=== PATIENT | male | born 1950 | race Caucasian/White ===

== ENCOUNTER 2017-10-25 07:37 | Outpatient (CLI) | payer MEDICARE, SELFPAY ==
[2017-10-25 15:11] LABS: Absolute Basophil Count 0.02 k/cumm (0.0-0.2); Absolute Eosinophil Count 0.07 k/cumm (0.0-0.7); Absolute Lymphocyte Count 0.76 k/cumm (1.2-3.4); Absolute Monocyte Count 0.61 k/cumm (0.11-0.7); Absolute Neutrophil Count 2.14 k/cumm (1.2-6.7); Basophils % 0.6; Eosinophils % 1.9; HCT 38.6 % (40.0-50.0); HGB 13.6 g/dL (13.5-17.5); Lymphocytes % 21.1; Mean Corp. HGB Concentration 35.2 g/dL (32.0-36.0); Mean Corpuscular Hemoglobin 32.6 pg (27.0-33.0); Mean Corpuscular Volume 92.6 fL (80-95); Mean Platelet Volume 9.4 fL (8.0-11.0); Monocytes % 16.9; Neutrophils % 59.5; Platelet Count 210 x1000/uL (130-400); RBC 4.17 m/cumm (4.50-6.00); RBC Distribution Width 11.8 % (11.8-14.1)
[2017-10-25 15:38] LABS: ALT 53 U/L (12-78); AST 52 U/L (15-37); Albumin 3.7 g/dL (3.4-5.0); Alkaline Phosphatase 84 U/L (46-116); Anion Gap 5.5 mmol/L (3-11); BUN 9 mg/dL (7-18); Bilirubin, Total 0.5 mg/dL (0.2-1.0); CO2 24.5 mmol/L (21.0-32.0); CREATININE 0.63 mg/dL (0.70-1.30); Chloride 96 mmol/L (98-107); Glucose 93 mg/dL (70-100); Potassium 4.3 mmol/L (3.5-5.1); Sodium 126 mmol/L (136-145); TSH 0.44 uIU/mL (0.358-3.74); Total Protein 7.4 g/dL (6.4-8.2)
== END 2017-10-25 07:57 ==
PROVIDERS: PCP General Practice; Visit Provider Nurse Practitioner Adult Health
DX: C76.0 Malignant neoplasm of head, face and neck (principal)
CPT/HCPCS: 36415; 80053; 84443; 85025

== ENCOUNTER 2018-06-21 08:04 | Outpatient (CLI) | payer BC, MEDICARE, SELFPAY ==
[2018-06-21 12:44] LABS: Abs Immature Grans 0.01 k/cumm (0.0-0.09); Absolute Basophil Count 0.01 k/cumm (0.0-0.2); Absolute Eosinophil Count 0.09 k/cumm (0.0-0.7); Absolute Lymphocyte Count 0.81 k/cumm (1.2-3.4); Absolute Monocyte Count 0.69 k/cumm (0.11-0.7); Absolute Neutrophil Count 3.03 k/cumm (1.2-6.7); Basophils % 0.2; Eosinophils % 1.9; HCT 41.9 % (40.0-50.0); HGB 14.8 g/dL (13.5-17.5); Immature Grans % 0.2; Lymphocytes % 17.5; Mean Corp. HGB Concentration 35.3 g/dL (32.0-36.0); Mean Corpuscular Hemoglobin 32.7 pg (27.0-33.0); Mean Corpuscular Volume 92.7 fL (80-95); Mean Platelet Volume 9.6 fL (8.0-11.0); Monocytes % 14.9; Neutrophils % 65.3; Platelet Count 213 x1000/uL (130-400); RBC 4.52 m/cumm (4.50-6.00); RBC Distribution Width 11.4 % (11.8-14.1); White Blood Cell Count 4.64 k/cumm (4.4-10.8)
[2018-06-21 13:23] LABS: ALT 75 U/L (12-78); AST 61 U/L (15-37); Albumin 3.7 g/dL (3.4-5.0); Alkaline Phosphatase 77 U/L (46-116); Anion Gap 8.4 mmol/L (3-11); BUN 8 mg/dL (7-18); Bilirubin, Total 0.4 mg/dL (0.2-1.0); CO2 26.6 mmol/L (21.0-32.0); CREATININE 0.73 mg/dL (0.70-1.30); Calcium 8.9 mg/dL (8.5-10.1); Chloride 95 mmol/L (98-107); Glucose 89 mg/dL (70-100); Potassium 3.9 mmol/L (3.5-5.1); Sodium 130 mmol/L (136-145); TSH 1.36 uIU/mL (0.358-3.74); Total Protein 7.6 g/dL (6.4-8.2)
== END 2018-06-21 08:24 ==
PROVIDERS: PCP General Practice; Visit Provider Nurse Practitioner Adult Health
DX: C76.0 Malignant neoplasm of head, face and neck (principal); E03.8 Other specified hypothyroidism
CPT/HCPCS: 36415; 80053; 84443; 85025

== ENCOUNTER 2018-06-26 12:20 | Outpatient (REF) | payer BC, MEDICARE, SELFPAY | END 2018-06-26 12:40 | LOC: LBN 12:20 | PROVIDERS: PCP General Practice; Visit Provider General Practice | DX: L02.91 Cutaneous abscess, unspecified (principal) | CPT/HCPCS: 87070; 87205 ==

== ENCOUNTER 2018-06-30 08:14 | Outpatient (CLI) | payer BC, MEDICARE, SELFPAY ==
--- NOTE | 2018-06-30 08:00 | DI.RAD_ITS ---
SYMPTOM/DIAGNOSIS: EVAL RECURRENCE OR MET C76.0 PA AND LATERAL CHEST: 06/30 The heart is not enlarged. The lungs are grossly clear with minimal change to scarring. No pleural effusion seen. CONCLUSION: No evidence of acute disease. A mid-thoracic compression fracture is unchanged from previous chest CT of 06/21/2017 There is a questionable finding of increased radiodensity overlying the lateral aspect of the right 5th rib. This appears to correspond to a bone island which is also present on chest CT of 06/21/17
== END 2018-06-30 08:34 ==
PROVIDERS: PCP General Practice; Visit Provider Nurse Practitioner Adult Health
DX: C76.0 Malignant neoplasm of head, face and neck (principal); Z12.89 Encounter for screening for malignant neoplasm of other sites; M89.8X8 Other specified disorders of bone, other site
CPT/HCPCS: 71046

== ENCOUNTER 2018-09-08 07:59 | Outpatient (CLI) | payer BC, MEDICARE, SELFPAY ==
--- NOTE | 2018-09-08 09:02 | DI.RAD_ITS ---
SYMPTOM/DIAGNOSIS: CHRONIC PAIN LEFT THUMB: Three views. No priors. At the first carpal/metacarpal joint there is marked joint space narrowing, sclerosis and osteophytosis. There is loss of volume of the trapezium bone. There is also joint space narrowing and sclerosis seen at the articulation of the scaphoid with both the trapezium and trapezoid. At the first metacarpal phalangeal joint there is mild spurring at the head of the metacarpal bone. There is mild spurring at the interphalangeal joint of the left thumb. Note is also made of joint space narrowing and spurring at the distal radial ulnar joint. Mild degenerative changes are seen at the interphalangeal joints of the index and middle fingers. IMPRESSION: Severe osteoarthritis of the left thumb particularly the first carpal/metacarpal joint.
--- NOTE | 2018-09-08 09:02 | DI.RAD_ITS ---
SYMPTOM/DIAGNOSIS: CHRONIC PAIN RIGHT THUMB: Three views. No priors. There is marked joint space narrowing and marked periarticular osteophytosis at the first carpal/metacarpal joint. At the first metacarpal phalangeal joint there is mild periarticular spurring and joint space narrowing. The interphalangeal joint of the thumb appears intact. No acute fracture, dislocation, lytic or sclerotic lesion is seen. IMPRESSION: Severe arthritis of the right thumb.
[2018-09-08 09:38] LABS: INR 1.1 (0.9-1.1); Prothrombin Time 10.5 sec (9.3-11.0)
[2018-09-08 10:09] LABS: ALT 76 U/L (12-78); AST 51 U/L (15-37); Bilirubin, Total 0.6 mg/dL (0.2-1.0); CREATININE 0.62 mg/dL (0.70-1.30); Calculated LDL 60 mg/dL; Cholesterol 129 mg/dL (50-200); Glucose 95 mg/dL (70-100); HDL Cholesterol 57 mg/dL (40-60); Potassium 4.4 mmol/L (3.5-5.1); Triglyceride 61 mg/dL (30-150)
== END 2018-09-08 08:19 ==
PROVIDERS: PCP General Practice; Visit Provider General Practice
DX: I10 Essential (primary) hypertension (principal); B18.2 Chronic viral hepatitis C; M79.645 Pain in left finger(s); M18.12 Unilateral primary osteoarthritis of first carpometacarpal joint, left hand
CPT/HCPCS: 36415; 80061; 82947; 83721; 73140; 82247; 82565; 84132; 84450; 84460; 85610

== ENCOUNTER 2018-12-28 03:03 | Outpatient (CLI) | payer BC, MEDICARE, SELFPAY ==
--- NOTE | 2018-12-28 08:35 | DI.MRI_ITS ---
EXAM: MR LUMBAR SPINE WO CLINICAL HISTORY: M54.9,DORSALGIA., H/O SURGERY, LOW BACK PAIN, LEG SYMPTOMS TECHNIQUE: Multiplanar multisequence MRI was performed. COMPARISON: MRI - LUMBAR SPINE WO CONTRAST from 10/30/2013 NECK AND CHEST WITH CONTRAST from 01/30/2016 NECK AND CHEST WITH CONTRAST from 06/21/2017 FINDINGS: MR examination of the lumbosacral spine was performed according to the usual protocol. Patient has h ad a prior surgical procedure with apparent Ventura rods in place at L4 and L5. Metallic artifact somewhat obscures the spine at these levels. Old compression deformity of T10 again noted. No change from 10/30/2013. The conus medullaris appea rs intact. Mild disc bulge at T12-L1. No other significant findings at T12-L1, L1-2 or L2-3. At L3-4, there is a moderate central canal spinal stenosis and bilateral neural foraminal stenosis. Comparison with prior study shows slight increase in severity of central canal spinal stenosis at thi s level. At L4-5, there is suboptimal visualization of the spinal canal but no gross central canal spinal sten osis is seen. Bilateral neural foraminal narrowing noted at this level. At L5-S1, there is a disc bulge without disc herniation. Little interval change [facility] the previous examination. Borderline neural foraminal stenosis seen. IMPRESSION: Interval decrease in severity of central canal spinal stenosis at L4-5 in comparison with prior pre-s urgical study of 10/30/2013. Mild interval increase in severity of central canal spinal stenosis at L3-4 since the prior examinati on. Bilateral neural foraminal narrowing noted at L3-4 and L4-5.
== END 2018-12-28 03:23 ==
PROVIDERS: PCP General Practice; Visit Provider General Practice
DX: M54.5 Low back pain (principal); M48.061 Spinal stenosis, lumbar region without neurogenic claudication; M51.27 Other intervertebral disc displacement, lumbosacral region
CPT/HCPCS: 72148

== ENCOUNTER 2019-01-29 10:47 | Outpatient (REF) | payer BC, MEDICARE, SELFPAY ==
[2019-01-29 14:49] LABS: Anion Gap 11.1 mmol/L (3-11); BUN 10 mg/dL (7-18); CO2 23.9 mmol/L (21.0-32.0); CREATININE 0.66 mg/dL (0.70-1.30); Calcium 9.7 mg/dL (8.5-10.1); Chloride 97 mmol/L (98-107); Glucose 109 mg/dL (74-106); Potassium 4.4 mmol/L (3.5-5.1); Sodium 132 mmol/L (136-145); TSH (W/Ref FT4) 0.76 uIU/mL (0.36-3.74)
[2019-01-30 10:55] LABS: Hepatitis C Ab w Rflx HCV PCR Reactive (Negative)
== END 2019-01-29 11:07 ==
LOC: NCHCN 10:47
PROVIDERS: PCP General Practice; Visit Provider Specialist/Technologist Athletic Trainer
DX: E03.9 Hypothyroidism, unspecified (principal); I10 Essential (primary) hypertension; Z86.59 Personal history of other mental and behavioral disorders; Z11.59 Encounter for screening for other viral diseases
CPT/HCPCS: 80048; 86803; 84443; 87522

== ENCOUNTER 2019-02-27 14:20 | Outpatient (REF) | payer MEDICARE, SELFPAY ==
[2019-02-27 22:06] LABS: HCT 40.5 % (40.0-50.0); HGB 14.4 g/dL (13.5-17.5); Mean Corp. HGB Concentration 35.6 g/dL (32.0-36.0); Mean Corpuscular Hemoglobin 32.7 pg (27.0-33.0); Mean Platelet Volume 9.9 fL (8.0-11.0); Platelet Count 271 x1000/uL (130-400); RBC Distribution Width 11.4 % (11.8-14.1); White Blood Cell Count 4.04 k/cumm (4.4-10.8)
[2019-02-27 22:16] LABS: ALT 83 U/L (16-63); AST 74 U/L (15-37); Alkaline Phosphatase 93 U/L (46-116); Anion Gap 11.8 mmol/L (3-11); BUN 9 mg/dL (7-18); Bilirubin, Total 0.6 mg/dL (0.2-1.0); CO2 25.2 mmol/L (21.0-32.0); CREATININE 0.62 mg/dL (0.70-1.30); Calcium 9.5 mg/dL (8.5-10.1); Chloride 94 mmol/L (98-107); Glucose 88 mg/dL (74-106); Potassium 4.6 mmol/L (3.5-5.1); Sodium 131 mmol/L (136-145); Total Protein 7.5 g/dL (6.4-8.2)
== END 2019-02-27 14:40 ==
LOC: NCHCN 14:20
PROVIDERS: PCP General Practice; Visit Provider Specialist/Technologist Athletic Trainer
DX: I10 Essential (primary) hypertension (principal); F10.99 Alcohol use, unspecified with unspecified alcohol-induced disorder; R68.89 Other general symptoms and signs
CPT/HCPCS: 80053; 85027

== ENCOUNTER 2019-05-21 10:55 | Outpatient (CLI) | payer OTHER, MEDICARE, SELFPAY ==
--- NOTE | 2019-05-21 | DI.RAD_ITS ---
EXAM: XR LUMBAR SPINE COMPLETE CLINICAL HISTORY: S/P LUMBAR FUSION, Z98.1 COMPARISON: LUMBAR SPINE COMPLETE from 11/27/2013 FINDINGS: Seven views were obtained. There is a left hip prosthesis in position. There are Ventura rods in place at L3-4 and there are fixation screws in the pedicles and posterior elements at L5. There is an L3-4 prosthetic disc. Vascular clips are present at the L4-5 disc level. There is marked loss of t he intervertebral disc space at L4-5 and L5-S1. There are prominent hypertrophic facet changes and endplate changes throughout the lumbar region. The re is no acute fracture. There is a slight left convex lumbar scoliosis. There is minimal anterior pseudospondylolisthesis of L4 on L5 and also of L3 on L4. IMPRESSION: Post surgical and degenerative changes as described above. No acute findings.
== END 2019-05-21 11:15 ==
PROVIDERS: PCP General Practice; Visit Provider Neurological Surgery
DX: M51.37 Other intervertebral disc degeneration, lumbosacral region (principal); M43.16 Spondylolisthesis, lumbar region; Z98.1 Arthrodesis status; Z96.642 Presence of left artificial hip joint
CPT/HCPCS: 72110

== ENCOUNTER 2019-07-24 12:29 | Outpatient (CLI) | payer MEDICARE, OTHER, SELFPAY ==
[2019-07-24 13:29] LABS: Abs Immature Grans 0.01 k/cumm (0.0-0.09); Absolute Basophil Count 0.01 k/cumm (0.0-0.2); Absolute Lymphocyte Count 0.79 k/cumm (1.2-3.4); Absolute Monocyte Count 0.66 k/cumm (0.11-0.7); Absolute Neutrophil Count 3.02 k/cumm (1.2-6.7); Basophils % 0.2; Eosinophils % 2.2; Immature Grans % 0.2 %; Lymphocytes % 17.2; Mean Corp. HGB Concentration 35.9 g/dL (32.0-36.0); Mean Corpuscular Hemoglobin 32.1 pg (27.0-33.0); Mean Corpuscular Volume 89.4 fL (80-95); Monocytes % 14.4; Neutrophils % 65.8; Platelet Count 291 x1000/uL (130-400); RBC 4.36 m/cumm (4.50-6.00); RBC Distribution Width 11.1 % (11.8-14.1); White Blood Cell Count 4.59 k/cumm (4.4-10.8)
[2019-07-24 13:43] LABS: ALT 60 U/L (16-63); AST 49 U/L (15-37); Albumin 3.7 g/dL (3.4-5.0); Alkaline Phosphatase 81 U/L (46-116); Anion Gap 9.4 mmol/L (3-11); BUN 7 mg/dL (7-18); Bilirubin, Total 0.5 mg/dL (0.2-1.0); CO2 24.6 mmol/L (21.0-32.0); CREATININE 0.78 mg/dL (0.70-1.30); Calcium 8.9 mg/dL (8.5-10.1); Chloride 93 mmol/L (98-107); Glucose 91 mg/dL (74-106); Potassium 3.9 mmol/L (3.5-5.1); Sodium 127 mmol/L (136-145); TSH 0.99 uIU/mL (0.36-3.74); Total Protein 7.1 g/dL (6.4-8.2)
== END 2019-07-24 12:49 ==
PROVIDERS: PCP Internal Medicine; Visit Provider Internal Medicine Hematology & Oncology
DX: C76.0 Malignant neoplasm of head, face and neck (principal); E03.9 Hypothyroidism, unspecified
CPT/HCPCS: 36415; 80053; 84443; 85025

== ENCOUNTER 2019-08-28 01:07 | Outpatient (CLI) | payer OTHER, MEDICARE, SELFPAY ==
--- NOTE | 2019-08-28 13:30 | DI.CTLCSR_ITS ---
EXAM: CT CHEST LUNG CANCER SCREEN CLINICAL HISTORY: The patient reportedly has a History of Smoking 30 pack years and presently smokes or has quit the past 15 years. TECHNIQUE: Imaging Protocol: Axial computed tomography images with coronal and sagittal reformatted images were created and reviewed COMPARISON: CT NECK AND CHEST WITH CONTRAST from 06/21/2017 FINDINGS: Tracheobronchial tree: Patent where visualized. Mediastinum and Jen: No dominant adenopathy or fluid collection. Pulmonary parenchyma: No consolidation or dominant measurable mass. No significant emphysematous or f ibrotic changes. Lung Nodules: None. Pleura: No effusion or pneumothorax. Heart: The heart is not dilated. No coronary artery calcifications are seen. Antral valve calcificati ons are present. Aorta: Thoracic aorta non-dilated.Mild calcification. Marked tortuosity. Upper abdomen: Unremarkable. Bones: Stable severe wedging deformity of the T10 vertebral body. Degenerative disc changes. No lyt ic or blastic lesions. Soft Tissues: Unremarkable. IMPRESSION: No pulmonary nodules or other acute abnormality are identified. Lung RADS Cat 1 - Negative: No nodules and definitely benign nodules Lung-RADS 1.0 CATEGORIES: Category 0 - Prior chest CT exam(s) being located for comparison. Category 1 - Annual screening in 12 months. No nodules or definitely benign nodules. Category 2 - Annual screening in 12 months. Benign appearance. Nodules with low likelihood of becomin g active cancer. Category 3 - 6-month follow-up. Probably benign. Short-term follow-up suggested. Nodules with low lik elihood of becoming active cancer. Category 4A - 3-month follow-up and CT/PET if >8 mm in size. Suspicious finding. Findings which requi re additional testing. Category 4B - Findings which require additional testing and tissue sampling. Suspicious finding. C Added to Any of the Above - History of prior lung cancer screening. S Added to Any of the Above - Significant unexpected other finding. RADIATION DOSE DELIVERED: Total DLP DATA REPOSITORY: All CT scans at this facility are submitted to the National Radiology Data Registry (NRDR) Dose Index Registry (DIR) with the [employer] ([employer]). RADIATION OPTIMIZATION: All CT scans at this facility use at least one of these dose optimization te chniques: automated exposure control; mA and/or kV adjustment per patient size (includes targeted exa ms where dose is matched to clinical indication); or iterative reconstruction.
== END 2019-08-28 01:27 ==
PROVIDERS: PCP Internal Medicine; Visit Provider Internal Medicine Hematology & Oncology
DX: Z12.2 Encounter for screening for malignant neoplasm of respiratory organs (principal); Z87.891 Personal history of nicotine dependence
CPT/HCPCS: G0297

== ENCOUNTER 2020-02-20 01:39 | Outpatient (CLI) | payer OTHER, MEDICARE, SELFPAY ==
--- NOTE | 2020-02-20 | DI.RAD_ITS ---
EXAM: XR LUMBAR SPINE COMPLETE CLINICAL HISTORY: 1 YR S/P L3-4 LUMBAR FUSION,Z98.1 TECHNIQUE: COMPARISON: CR XR LUMBAR SPINE COMPLETE from 05/21/2019 FINDINGS: Eight views were obtained. Note is again made of posterior fixation hardware in place from L3 throug h L5 as well as a vertebral disc prosthesis at L3-4. Alignment appears unchanged comparison with david or radiographs of May 20. No new fracture seen. Flexion extension views grossly unremarkable. IMPRESSION: RADIATION DOSE DELIVERED: Total DLP
== END 2020-02-20 01:59 ==
PROVIDERS: PCP Internal Medicine; Visit Provider Neurological Surgery
DX: Z98.1 Arthrodesis status (principal)
CPT/HCPCS: 72110

== ENCOUNTER 2020-04-25 19:35 | Outpatient (REF) | payer MEDICARE, OTHER, SELFPAY ==
[2020-04-25 13:40] LABS: HCT 44.7 % (40.0-50.0); HGB 15.6 g/dL (13.5-17.5); MCH 31.3 pg (27.0-33.0); MCHC 34.9 % (32.0-36.0); MCV 89.8 fL (80-95); MPV 10.2 fL (8.0-11.0); Platelet Count 259 10^3/uL (130-400); RBC 4.98 10^6/uL (4.36-5.78); RDW 12.4 % (11.8-14.1); WBC 6.83 10^3/uL (4.4-10.8)
[2020-04-25 13:49] LABS: ALT 63 U/L (16-63); AST 49 U/L (15-37); Albumin 4.2 g/dL (3.4-5.0); Alkaline Phosphatase 91 U/L (46-116); Anion Gap 11.8 mmol/L (3-11); BUN 13 mg/dL (7-18); Bilirubin, Total 0.7 mg/dL (0.2-1.0); CO2 25.2 mmol/L (21.0-32.0); CREATININE 0.8 mg/dL (0.70-1.30); Calcium 9.8 mg/dL (8.5-10.1); Calculated LDL 87 mg/dL (<100); Chloride 96 mmol/L (98-107); Cholesterol 155 mg/dL (<200); Glucose 96 mg/dL (74-106); HDL Cholesterol 63 mg/dL (40-60); Potassium 4.9 mmol/L (3.5-5.1); Sodium 133 mmol/L (136-145); TSH (W/Ref FT4) 1.21 uIU/mL (0.36-3.74); Total Protein 7.8 g/dL (6.4-8.2); Triglyceride 27 mg/dL (<150)
[2020-04-25 22:34] LABS: PSA, Screening 2.5 ng/mL (0.0-4.5)
== END 2020-04-25 19:36 | disposition home or self-care (01) ==
LOC: NCHCN 19:35
PROVIDERS: PCP Internal Medicine; Visit Provider Family Medicine
DX: Z00.00 Encounter for general adult medical examination without abnormal findings (principal); E89.0 Postprocedural hypothyroidism; I10 Essential (primary) hypertension; B19.20 Unspecified viral hepatitis C without hepatic coma; Z12.5 Encounter for screening for malignant neoplasm of prostate
CPT/HCPCS: 80053; 80061; 84153; 85027; 84443

== ENCOUNTER 2020-06-30 03:17 | Outpatient (CLI) | payer MEDICARE, OTHER, SELFPAY ==
[2020-06-30 09:43] LABS: ALT 59 U/L (16-63); AST 50 U/L (15-37); Albumin 3.9 g/dL (3.4-5.0); Alkaline Phosphatase 89 U/L (46-116); BUN 9 mg/dL (7-18); Bilirubin, Total 0.7 mg/dL (0.2-1.0); CREATININE 0.7 mg/dL (0.70-1.30); Chloride 96 mmol/L (98-107); Glucose 99 mg/dL (74-106); Potassium 4.1 mmol/L (3.5-5.1); Sodium 130 mmol/L (136-145); TSH 0.74 uIU/mL (0.36-3.74); Total Protein 7.5 g/dL (6.4-8.2)
== END 2020-06-30 03:18 | disposition home or self-care (01) ==
LOC: LBO 03:17
PROVIDERS: PCP Internal Medicine; Visit Provider Internal Medicine Hematology & Oncology
DX: C76.0 Malignant neoplasm of head, face and neck (principal); E03.9 Hypothyroidism, unspecified
CPT/HCPCS: 36415; 80053; 84443

== ENCOUNTER 2020-12-10 00:50 | Outpatient (CLI) | payer MEDICARE, OTHER, SELFPAY ==
--- NOTE | 2020-12-10 08:32 | DI.CTLCSR_ITS ---
Exam(s) CT CHEST LUNG CANCER SCREEN EXAM: CT CHEST LUNG CANCER SCREEN CLINICAL HISTORY: SCREENING FOR LUNG CA, FORMER SMOKER,Z87.891,H/O HEAD AND NECK CA,HIGH RISK TECHNIQUE: Imaging Protocol: Axial computed tomography images with coronal and sagittal reformatted images were created and reviewed COMPARISON: CT CT CHEST LUNG CANCER SCREEN from 08/28/2019 FINDINGS: Tracheobronchial tree: Patent where visualized. Pulmonary parenchyma: No consolidation or dominant measurable mass. No architectural distortion. Mild atelectasis or scarring in the lung bases. Lung Nodules: None. Mediastinum and Jen: No dominant adenopathy or fluid collection. Thyroid gland: Unremarkable. Pleura: No effusion or pneumothorax. Heart: The heart is not dilated. No coronary artery calcifications are seen. No pericardial effusion .Mitral valve calcification. Aorta: Thoracic aorta non-dilated.Atherosclerosis. Upper abdomen: Unremarkable. Soft Tissues: Unremarkable. Bones: Within normal limits. Lumbar spinal fusion surgery is noted. There is an old T10 wedge deform ity of the vertebral body. IMPRESSION: No pulmonary nodules. Lung RADS Cat 1 - Negative: No nodules and definitely benign nodules Lung-RADS 1.0 CATEGORIES: Category 0 - Prior chest CT exam(s) being located for comparison. Category 1 - Annual screening in 12 months. No nodules or definitely benign nodules. Category 2 - Annual screening in 12 months. Benign appearance. Nodules with low likelihood of becomin g active cancer. Category 3 - 6-month follow-up. Probably benign. Short-term follow-up suggested. Nodules with low lik elihood of becoming active cancer. Category 4A - 3-month follow-up and CT/PET if >8 mm in size. Suspicious finding. Findings which requi re additional testing. Category 4B - Findings which require additional testing and tissue sampling. Suspicious finding. Modifier S- Potentially clinically significant finding. (Non lung cancer) RADIATION DOSE DELIVERED: 88.26mGy.cm Total DLP 1.84mGy CTDIvol 88.26mGy.cm Total DLP 1.84mGy CTDIvol DATA REPOSITORY: All CT scans at this facility are submitted to the National Radiology Data Registry (NRDR) Dose Index Registry (DIR) with the [employer] (ACR). RADIATION OPTIMIZATION: All CT scans at this facility use at least one of these dose optimization te chniques: automated exposure control; mA and/or kV adjustment per patient size (includes targeted exa ms where dose is matched to clinical indication); or iterative reconstruction.
== END 2020-12-10 01:10 ==
PROVIDERS: PCP Internal Medicine; Visit Provider Internal Medicine Hematology & Oncology
DX: Z87.891 Personal history of nicotine dependence (principal); C76.0 Malignant neoplasm of head, face and neck; Z12.2 Encounter for screening for malignant neoplasm of respiratory organs
CPT/HCPCS: 71271

== ENCOUNTER → 2021-03-31 08:05 | Outpatient (BNVA) | payer BC, MEDICARE, SELFPAY | PROVIDERS: PCP Internal Medicine; Referring Provider Family Medicine; Visit Provider Psychiatry & Neurology Neurology | DX: G56.03 Carpal tunnel syndrome, bilateral upper limbs (principal); G56.23 Lesion of ulnar nerve, bilateral upper limbs; M48.061 Spinal stenosis, lumbar region without neurogenic claudication; G62.9 Polyneuropathy, unspecified; I10 Essential (primary) hypertension; F10.10 Alcohol abuse, uncomplicated | CPT/HCPCS: 95886; 95911; 99204 ==

== ENCOUNTER 2021-04-27 12:51 | Outpatient (REF) | payer BC, MEDICARE, SELFPAY ==
[2021-04-27 16:07] LABS: ALT 80 U/L (16-63); AST 70 U/L (15-37); Albumin 4.1 g/dL (3.4-5.0); Alkaline Phosphatase 90 U/L (46-116); BUN 12 mg/dL (7-18); Bilirubin, Total 0.9 mg/dL (0.2-1.0); CREATININE 0.7 mg/dL (0.70-1.30); Calcium 9.4 mg/dL (8.5-10.1); Calculated LDL 77 mg/dL (<100); Chloride 97 mmol/L (98-107); Cholesterol 143 mg/dL (<200); Glucose 94 mg/dL (74-106); HDL Cholesterol 61 mg/dL (40-60); Potassium 4.4 mmol/L (3.5-5.1); Sodium 132 mmol/L (136-145); TSH (W/Ref FT4) 1.79 uIU/mL (0.36-3.74); Total Protein 7.7 g/dL (6.4-8.2); Triglyceride 29 mg/dL (<150)
== END 2021-04-27 12:52 | disposition home or self-care (01) ==
LOC: NCHCN 12:51
PROVIDERS: PCP Internal Medicine; Visit Provider Family Medicine
DX: E89.0 Postprocedural hypothyroidism (principal); I10 Essential (primary) hypertension; C76.0 Malignant neoplasm of head, face and neck; B19.20 Unspecified viral hepatitis C without hepatic coma
CPT/HCPCS: 80053; 80061; 84443

== ENCOUNTER → 2021-05-08 10:40 | Outpatient (BNVA) | payer BC, MEDICARE, SELFPAY | PROVIDERS: PCP Internal Medicine; Referring Provider Internal Medicine; Visit Provider Student in an Organized Health Care Education/Training Program | DX: R69 Illness, unspecified (principal) | CPT/HCPCS: 99213 ==

== ENCOUNTER 2021-05-19 15:26 | Outpatient (REF) | payer BC, MEDICARE, SELFPAY ==
[2021-05-19 17:13] LABS: D-Dimer 1314 ng/mlFEU (<500)
== END 2021-05-19 15:27 | disposition home or self-care (01) ==
LOC: NCHCN 15:26
PROVIDERS: PCP Family Medicine; Visit Provider Internal Medicine
DX: R22.42 Localized swelling, mass and lump, left lower limb (principal)
CPT/HCPCS: 85379

== ENCOUNTER → 2021-05-21 02:44 | Outpatient (CLI) | payer BC, MEDICARE, SELFPAY ==
--- NOTE | 2021-05-21 | DI.US_ITS ---
Exam(s) US LOWER EXTREMITY VENOUS LT EXAM: US LOWER EXTREMITY VENOUS LT CLINICAL HISTORY: + D DIMER,? DVT,H/O EDEMA ANKLE AND LEG,R22.42. TECHNIQUE: Lower extremity venous ultrasound performed using grayscale, color-flow, and spectral Do ppler analysis. COMPARISON: No exams were available for comparison FINDINGS: The common femoral, femoral and popliteal veins demonstrate normal compressibility, augmentation, and color Doppler. The posterior tibial veins are patent. No saphenous vein thrombosis or other superfi cial venous thrombosis is seen. No hematoma or Louie's cyst is seen. Mild ankle edema. IMPRESSION: Negative lower extremity ultrasound. No evidence of DVT. DATA REPOSITORY:
== END ==
PROVIDERS: PCP Family Medicine; Visit Provider Internal Medicine
DX: R22.42 Localized swelling, mass and lump, left lower limb (principal)
CPT/HCPCS: 93971

== ENCOUNTER → 2021-06-02 09:54 | Outpatient (BNVA) | payer BC, MEDICARE, SELFPAY | PROVIDERS: PCP Family Medicine; Referring Provider Family Medicine | DX: Z01.818 Encounter for other preprocedural examination (principal); G56.23 Lesion of ulnar nerve, bilateral upper limbs; G56.03 Carpal tunnel syndrome, bilateral upper limbs ==

== ENCOUNTER 2021-06-08 02:31 | Outpatient (CLI) | payer BC, MEDICARE, SELFPAY ==
[2021-06-08 12:10] LABS: Source Nasal/Nares
[2021-06-08 15:36] LABS: COVID-19 PCR Negative (Negative)
== END 2021-06-08 02:32 | disposition home or self-care (01) ==
LOC: LBO 02:32
PROVIDERS: PCP Family Medicine; Visit Provider Student in an Organized Health Care Education/Training Program
DX: Z20.822 Contact with and (suspected) exposure to COVID-19 (principal); Z01.818 Encounter for other preprocedural examination
CPT/HCPCS: 87635

== ENCOUNTER 2021-06-09 10:16 | Day surgery (SDC) | payer BC, MEDICARE, SELFPAY ==
--- NOTE | 2021-06-09 09:23 | W.PM.DSUDISC ---
Discharge Plan Disposition Patient Disposition: HOME Condition: Good Discharge Details Reason For Visit: Right carpal and cubital tunnel syndromes Attending Provider: Reynaldo Calix Primary Care Provider: Marybel Eldridge Home Meds and New Rx's Prescriptions: New acetaminophen 500 mg tablet 500 mg PO Q6H PRN (Reason: pain) Qty: 60 2RF hydrocodone-acetaminophen 5-325 mg tablet 1 tab PO Q6H PRN (Reason: severe pain) Qty: 4 0RF Rx Instructions: Take one tablet up to every 6 hours as needed for severe postoperative pain ibuprofen 600 mg tablet 600 mg PO TID PRN (Reason: pain) Qty: 60 0RF Continued doxazosin [Cardura] 2 MG tablet 2 mg PO DAILY 0RF Label Comments: pt reports he doesnt take this med, stopped taking @ 3 weeks ago levothyroxine [Synthroid] 125 mcg tablet 125 mcg PO DAILY 0RF gabapentin 100 mg capsule 100 mg PO DAILY 0RF amlodipine 10 mg tablet 10 mg PO DAILY 0RF Label Comments: TAKE ONE TABLET BY MOUTH EVERY DAY Discontinued ibuprofen 800 mg tablet 800 mg PO HS PRN0RF Discharge Instructions Additional Instructions: Carpal Tunnel and Cubital Tunnel Decompression Discharge Instructions Activity: You should stay in the sling for the first 2 weeks. You may come out of the sling for gentle motion and hygiene but should largely remain in the sling to allow the incision site to heal. Gentle motion of the elbow, hand, wrist, and fingers is okay and encouraged after the first few days, but no repetitive activites nor heavy lifting. You may apply ice. Medications: - You should take Tylenol and Ibuprofen around the clock. - You have been prescribed Hydrocodone for breakthrough pain. Dressings: - The initial surgical dressing should stay in place for 3 days. It may then be removed and kept clean and dry. The wrist wound may be covered with a bandaid. The elbow should be covered with a light gauze dressing or large bandaids. - You may shower after 3 days and get the wound wet. Follow-up: 10 days Stand Alone Forms: Anesthesia Discharge , Yogi Juares Tunnel ReleaseDiane (DIEGO) Equipment/Supplies: Sling Activity:: Elevate Remove Dressings/Wound Care:: 72 hours Shower/Bathe:: 72 hours Diet:: As Tolerated Discharge Orders Discharge Orders: Discharge Order (Routine); Ordered 04/19/22 Ordered By: Mone Celis
[2021-06-09 10:47] VITALS: BP 148/90; PULSE 85; RESP 18; TEMP 36.7; O2SAT 96
--- NOTE | 2021-06-09 11:06 | ANES.PREOP_ITS ---
General Info Date of Service Date Performed: 06/09/21 Height: 5 ft 10 in Weight: 85.8 kg Body Mass Index (BMI): 27.1 Surgical Procedure: Operation Date: 06/09/21 14:10 Proposed Procedure Side Surgeon p Wrist ECTR Right Reynaldo Calix MD s Cubital Tunnel Release Right Reynaldo Calix MD Meds Allergies and Home Medications Allergies Allergy/AdvReac Type Severity Reaction Status Date / Time Sulfa (Sulfonamide Allergy Intermediate Verified 06/09/21 10:42 Antibiotics) codeine AdvReac Verified 06/09/21 10:43 Home Medication Medication Instructions Recorded doxazosin 2 mg tablet (Cardura) 2 mg PO DAILY tab-cap 01/19/16 levothyroxine 125 mcg tablet 125 mcg PO DAILY 12/18/19 (Synthroid) gabapentin 100 mg capsule 100 mg PO DAILY 12/17/20 amlodipine 10 mg tablet 10 mg PO DAILY 06/05/21 acetaminophen 500 mg tablet 500 mg PO Q6H PRN #60 tab 06/09/21 hydrocodone 5 mg-acetaminophen 325 1 tab PO Q6H PRN #4 tab 06/09/21 mg tablet ibuprofen 600 mg tablet 600 mg PO TID PRN #60 tab 06/09/21 Current Visit Medications: Current Medications Generic Name Dose Route Start Last Admin Trade Name Freq PRN Reason Stop Dose Admin Acetaminophen 650 mg 06/09/21 09:21 Acetaminophen 325 Mg Tab PO Q4H PRN PRN Hydrocodone Bitart/Acetaminophen 0 tab 06/09/21 09:21 Hydrocodone 5/Acetaminophen 325 Tab PO Q3H PRN PRN Pain Ringer's Solution 1,000 mls @ 80 mls/hr 06/09/21 06:00 IV 06/20/21 23:59 INFUSION KWAME Cefazolin Sodium/Dextrose 2 gm in 50 mls @ 100 mls/hr 06/09/21 06:00 Ancef Duplex IVPB 06/09/21 23:59 PREOP KWAME IV Miscellaneous Supplies 1 each 06/09/21 06:00 Iv Access IV 06/20/21 23:59 DIRECTED KWAME Sodium Chloride 0 ml 06/09/21 06:00 Normal Saline Flush 10 Ml Syr IV 06/20/21 23:59 PRN PRN Sodium Chloride 0 ml 06/09/21 06:00 Normal Saline 10 Ml Vial IJ 06/20/21 23:59 DIRECTED PRN Sterile Water 0 ml 06/09/21 06:00 Water,Injection,Sterile 10 Ml Vial IJ 06/20/21 23:59 DIRECTED PRN PFSH Active Problems Active Problems: Problem Status Onset Code Carpal tunnel syndrome on both sides G56.03 Cubital tunnel syndrome, bilateral G56.23 Lumbar stenosis M48.061 Peripheral neuropathy G62.9 Medical History Medical History Alcohol abuse BPH (benign prostatic hyperplasia) Bundle branch block Bifascicular block per [facility] rec. Colon adenoma ED (erectile dysfunction) Hepatitis C History of head and neck cancer History of radiation therapy History of substance abuse HTN (hypertension) Hypothyroidism Lumbar IVD with compression radiculopathy Osteoarthritis Medical History Comments:: Dentures removed and left at home Surgical History Surgical History back surgery Colonoscopy - IV Sedation 2006-ademoma Status post total hip replacement, left Tobacco Smoking/Tobacco Use Status: Former Tobacco Use Alcohol Alcohol Intake: current Alcohol intake frequency: 3 or more drinks per day Alcohol type: beer Substance Use Substance use: Daily Substance use type: marijuana and prescription drug Details: Pt reports he smoked marijuana last night 06/08/21 @ 2100. Vital Signs and Lab Results Vital Signs Most Recent Vital Signs in EMR: Most Recent Vital Signs Temp Pulse Resp BP Pulse Ox 36.7 C 85 18 148/90 H 96 06/09/21 10:47 06/09/21 10:47 06/09/21 10:47 06/09/21 10:47 06/09/21 10:47 Lab Results Blood Type / Crossmatch: No Data to Display Complete Blood Count: No Data to Display Complete Metabolic Panel: No Data to Display Liver Function Panel: No Data to Display Coagulation Panel: D-Dimer 1314 ng/mlFEU (<500) H 05/19/21 09:10 05/19/21 Cardiac Panel: No Data to Display Arterial Blood Gas: No Data to Display Venous Blood Gas: No Data to Display Pancreas Panel: No Data to Display Thyroid Panel: No Data to Display Infectious Disease: Coronavirus (COVID-19)(PCR) Negative (Negative) 06/08/21 09:22 06/08/21 Coronavirus 2019 Source Nasal/Nares 06/08/21 09:22 06/08/21 Blood Cultures: No Data to Display Toxicology Panel: No Data to Display Anesthesia Assessment and Plan Anesthesia History Personal History: No History of Anesthesia Complications Family History: No Family History of Anesthesia Complications Exercise Tolerance Exercise Tolerance: Metabolic Equivalents>4 Pertinent Negatives Pertinent Negatives: No Symptoms of GERD, No Major Cardiovascular Symptoms or C omplaints, No Major Pulmonary Symptoms or Complaints and No History of CVA/TIA Cardiac & Pulmonary Exam Cardiac Exam: Normal S1/S2 Heart Sounds Pulmonary Exam: Clear Bilateral Breath Sounds Implantable Cardiac Device Does patient have a Pacemaker or an ICD?: No Airway Exam Known Difficult Airway: No Mallampati Class: 2 Mouth Opening: Normal (> 3cm) Thyromental Distance: Greater than 3 cm Neck Range of Motion: Full ROM Neck Circumference: Normal Teeth Condition: Normal Dentition and Removable Dentures/Plates Upper (Partial left at home) ASA Classification ASA Score: ASA 2 Emergency Case?: No NPO Status NPO Status: NPO Clears >2 hours, Solids >8 hours Anesthesia Plan Resuscitation Status: Full Code Anesthesia Technique: General Anesthesia Airway Planned: LMA Monitors Used: Standard Monitors Preoperative Comments:: History of head and neck cancer 2017, status post chemo and radiation. Per [facility] chart review, flexible laryngoscope 12/24/2020 The oropharynx, larynx, and piriform sinuses were visualized and were without masses or lesions. The vocal cords opposed without difficulty. Expected radiation related changes.
[2021-06-09 11:10] VITALS: BMI 27.1
[2021-06-09] MEDS: Lactated Ringers 1,000 ML 80 ML IV (11:12)
[2021-06-09] MEDS: ceFAZolin 2 GM/50 ML BAG IVPB (12:05)
[2021-06-09 13:10] VITALS: BP 144/112; BP 94/65; PULSE 79; RESP 20; TEMP 36.4; O2SAT 92; O2SAT 93
[2021-06-09 13:12] VITALS: BP 92/66
[2021-06-09 13:40] VITALS: BP 129/76; PULSE 83; RESP 18; TEMP 36.1; O2SAT 96
--- NOTE | 2021-06-09 13:53 | W.ANESPOSTOP ---
Postoperative Evaluation Date, Time and Location Date Performed: 06/09/21 Time Performed: 13:56 Patient Location: Day Surgery Unit Vital Signs Most Recent Imported Vital Signs: Most Recent Vital Signs Temp Pulse Resp BP Pulse Ox 36.1 C L 83 18 129/76 96 06/09/21 13:40 06/09/21 13:40 06/09/21 13:40 06/09/21 13:40 06/09/21 13:40 Pain Score Most Recent Pain Score: Most Recent Pain Score Pain Level 0 06/09/21 13:40 Assessment Mental Status: Awake (Alert & Oriented to Patient Baseline) Airway and Respiratory Function: Patent airway with normal (patient baseline) respiratory exam Cardiovascular Function: Hemodynamically Stable Hydration Status: Adequately Hydrated Nausea & Vomiting: No Nausea or Vomiting Pain: Pt. Denies Any Pain Peripheral Nerve Block: Patient did not receive a nerve block
--- NOTE | 2021-06-10 06:26 | W.PM.OP ---
Date of service: 06/10/21 Time of Service: 13:15 Operative Note Operative Note DATE OF PROCEDURE: 06/10/21 PRE-OP DIAGNOSIS: Right Carpal Tunnel and Right Cubital Tunnel Syndrome POST-OP DIAGNOSIS: same Subluxating Ulnar Nerve, Medial Epicondylitis PROCEDURE: Right Endoscopic Carpal Tunnel Release and Right Cubital Tunnel Decompression with Anterior Subcutaneous Transposition, Medial Epicondyle Debridement for Epicondylitis SURGEON: Reynaldo Calix ANESTHESIA TYPE: General:No Airway Refer to Anesthesia Record ESTIMATED BLOOD LOSS: 5 PATHOLOGY: none sent TOURNIQUET TIME: 29 COMPLICATIONS: None Patient was transported to: PACU Patient's condition: stable Indications: Abdulkadir is a 70 year old male who has had symptoms of carpal and cubital tunnel syndrome. Nonoperative treatment options had been trialed. Nerve conduction studies identified the carpal and cubital tunnel as the point of compression. Given failure of nonoperative treatments and persistent symptoms, I offered operative intervention. I reviewed the technical details of a carpal tunnel release and cubital tunnel decompression with possible anterior subcutaneous transposition. I reviewed the risk of the procedure to include bleeding, infection, pain, stiffness, nerve instability, damage to superficial nerves, persistent symptoms, and incomplete release. Despite these risks, the patient elected to proceed. Findings: The carpal tunnel was release with a standard endoscopic technique without difficulty and excellent visualization. There was mild tightness and no unexpected findingsl. The ulnar nerve is found to be unstable and was sublux around the medial epicondyle. The ulnar nerve was release from the first motor branch distally through the [place] of [place] proximally and transposed. There is notable degeneration of the flexor pronator origin about the medial condyle suggestive of chronic need epicondylitis with some tearing of those fibers. An aggressive debridement was performed of the medial epicondyle for this diagnosis. Procedure Description: Abdulkadir was greeted in the preoperative holding area where the correct side was identified and marked. The consent was reviewed with the patient and signed. The history and physical was updated. All questions were answered. He was taken back to the operating room. The patient was placed into the supine position on the operating room table with the right arm on an arm board. A nonsterile tourniquet was placed high onto the arm, into the axilla. All bony prominences were well padded. Prophylactic antibiotics in the form of Cefazolin were administered. The right arm was then prepped with Chloraprep and draped in a standard fashion with stockinette and extremity drape. A timeout to confirm correct identity, side and site, procedure, allergies, anesthesia, and medical concerns was performed. The surgical site was marked in the volar wrist creases in line with the radial border of the fourth ray. This area was anesthetized with approximately 6cc of 1% Lidocaine with Epinephrine. The surgical site about the medial elbow was drawn on the skin just posterior to the medial epicondyle borders. The planned surgical field was anesthetized with 1% Lidocaine with Epinephrine. The limb was then exsanguinated with an Esmarch. Starting with the carpal tunnel, the skin was incised with a 15 blade, approximately 1cm. The skin only was cut and the deeper tissue was dissected bluntly with a tenotomy scissor, avoiding passing nerve and venous structures. The fascia was penetrated and opened bluntly. A two-prong skin hook was placed under this proximal fascial edge. A series of hamate finders were used to identify and dilate the carpal tunnel. Synovial elevator was used to free synovial attachments to the underside of the transverse carpal ligament. My thumb was kept in the palm to padmini the distal extent of the carpal tunnel and correctly position the hand. The Microaire endoscope was inserted without difficulty and without resistance. Excellent visualization showed horizontally running fibers of the transverse carpal ligament (TCL). The distal extent of the TCL was visualized and the end of the scope palpated with the thumb. The blade was elevated and withdrawn from distal to proximal. The TCL was split into two flaps. The endoscope was reinserted to confirm complete release and any remnant ligament was incised. The scope was withdrawn and the proximal aspect of the carpal tunnel was grossly inspected and appeared release with the median nerve visible. The antebrachial fascia at the level of the wrist was then freed from the overlying skin and then the underlying median nerve with blunt dissection. This was transected longitudinally for about 3cm proximal to the wrist incision. The wound was then irrigated with easy flow of irrigant distally and proximally. The incision was closed with a single 4-0 Nylon suture. . Attention was then turned to the cubital tunnel release. The skin of the medial elbow was incised only with the elbow in some flexion and on a bump. The deep tissue and subcutaneous fat was dissected with a tenotomy scissors trying to protect any branches of the medial antebrachial cutaneous nerve. Any branches that were identified were retracted out of the way. The ulnar nerve was palpated and identified. The nerve was noted to be subluxating anteriorly and posteriorly to the medial epicondyle. There was a tightened sheath around the ulnar nerve although the actual cubital tunnel was stretched. A small window into the sheath overlying the nerve was created and the nerve was able to be palpated with the [place]. A Metzenbaum scissor was then used to open up the sheath. I then worked distal over the ulnar nerve releasing any constraints against the nerve all the way to the fascia of the FCU muscle belly. This muscle belly was bluntly all the way down to the first motor branch of the ulnar nerve and the overlying fascia was incised. Likewise starting there at the medial epicondyle, I proceeded to work proximally to release any constraints over the ulnar nerve. This was taken all the way to the arcade of [place]. The medial intermuscular septum was also palpated and any sharp edges against the ulnar nerve were resected and released. After fully releasing the nerve it was inspected visually. I was also able to palpate the nerve fully and reach one finger up into the proximal and distal aspects to make sure there were no constraints against the nerve. A freer elevator was also used to slide easily against the ulnar nerve without any points of constriction. The arm was then taken through range of motion. The ulnar nerve did sublux/dislocate out of its groove behind the lateral epicondyle. Mobility of the nerve was ensured. Deep adhesions to the ulnar nerve are released to allow better mobilization of the nerve. Once I was able to move it easily anterior to the distal humerus without any points of compression or tension I then created a fascial sling. While making the fascial sling it was quite obvious that there is some destruction of the flexor pronator origin from the medial condyle. There is degeneration of tissue. I elevated the flap of tissue for the sling and this degeneration was more evident. Therefore, used a rongeur to debride this degenerative tissue as well as the medial condyle to promote some healing and removal of this degenerative tissue. A fascial sling was raised and then attached to the overlying dermis with the nerve anterior to it. There is no pressure on the nerve. The nerve course was inspected proximally distally without any other points of compression. The tourniquet was then deflated. Any areas of bleeding were cauterized with bipolar electrocautery. The wound was thoroughly irrigated. The deep tissue was closed with a 3-0 Vicryl. The skin was closed with a 4-0 nylon. The wounds were dressed with Xeroform, 4 x 4's, ABD, Kerlix and an Carlos wrap. Abdulkadirwas placed into a sling. Abdulkadir was transferred back to the PACU in a stable condition.
== END 2021-06-09 14:36 | disposition home or self-care (01) ==
LOC: SUR 10:16
PROVIDERS: PCP Family Medicine; Visit Provider Student in an Organized Health Care Education/Training Program
PROC: 01N54ZZ Release Median Nerve, Percutaneous Endoscopic Approach (ICD-10-PCS; CPT 29848; principal; 2021-06-09 14:00)
PROC: (CPT 64718; 2021-06-09 14:00)
DX: G56.01 Carpal tunnel syndrome, right upper limb (principal); G56.21 Lesion of ulnar nerve, right upper limb; F10.10 Alcohol abuse, uncomplicated; I45.2 Bifascicular block; I10 Essential (primary) hypertension; E03.9 Hypothyroidism, unspecified
CPT/HCPCS: 64718; 29848; J0690; J1885; J2001; J2405; J2704

== ENCOUNTER → 2021-07-27 13:29 | Outpatient (BNVA) | payer BC, MEDICARE, SELFPAY | PROVIDERS: PCP Family Medicine; Referring Provider Family Medicine; Visit Provider Student in an Organized Health Care Education/Training Program | DX: G56.23 Lesion of ulnar nerve, bilateral upper limbs (principal) ==

== ENCOUNTER 2021-08-11 09:53 | Outpatient (CLI) | payer BC, MEDICARE, SELFPAY ==
--- NOTE | 2021-08-11 09:30 | DI.RAD_ITS ---
Exam(s) XR SHOULDER LT COMPLETE 2+V EXAM: XR SHOULDER LT COMPLETE 2+V CLINICAL HISTORY: shoulder pain. TECHNIQUE: 2D digital imaging was performed. Two views. COMPARISON: No exams were available for comparison FINDINGS: BONES: No acute fracture is present. No bony destructive lesion is seen. JOINTS: No dislocation present. Severe narrowing of the glenohumeral joint space. Spurring inferior humeral head and glenoid. Chronic appearing bony density beneath the humeral head. No significant AC joint spurring. SOFT TISSUE: Normal. IMPRESSION: Severe degenerative changes of the glenohumeral joint.. DATA REPOSITORY: RADIATION DOSE DELIVERED:
--- NOTE | 2021-08-11 09:30 | DI.RAD_ITS ---
Exam(s) XR SHOULDER RT COMPLETE 2+V EXAM: XR SHOULDER RT COMPLETE 2+V CLINICAL HISTORY: shoulder pain. TECHNIQUE: 2D digital imaging was performed. Two views. COMPARISON: No exams were available for comparison FINDINGS: BONES: No acute fracture is present. No bony destructive lesion is seen. JOINTS: No dislocation present. Marked narrowing of the glenohumeral joint space. Insert inferior s purring. Spurring at lesser tuberosity. No significant AC joint spurring. SOFT TISSUE: Normal. IMPRESSION: Advanced degenerative changes of the glenohumeral joint. DATA REPOSITORY: RADIATION DOSE DELIVERED:
== END 2021-08-11 09:54 | disposition home or self-care (01) ==
LOC: DIORS 09:54
PROVIDERS: PCP Family Medicine; Referring Provider Family Medicine; Visit Provider Student in an Organized Health Care Education/Training Program
DX: M25.511 Pain in right shoulder; M25.512 Pain in left shoulder
CPT/HCPCS: 99214; 73030

== ENCOUNTER → 2021-09-10 00:23 | Outpatient (CLI) | payer BC, MEDICARE, SELFPAY ==
--- NOTE | 2021-09-10 08:18 | DI.RAD_ITS ---
Exam(s) RF JOINT INJECTION FLUORO GUID EXAM: RF JOINT INJECTION FLUORO GUID CLINICAL HISTORY: LEFT SHOULDER PAIN, BURSITIS, ARTHRITIS, M75.52, M75.22, M19.012 TECHNIQUE: Fluoroscopy provided. Radiologist not present. CONTRAST MATERIAL: None COMPARISON: No exams were available for comparison FINDINGS: Fluoroscopy was provided for therapeutic shoulder injection. Submitted image(s) reveal intra-articular position of the needle Please refer to the procedure report for complete details. Cumulative Dose: Pratimar=2.75 mGy IMPRESSION: RADIATION DOSE DELIVERED:
[2021-09-10] MEDS: Omnipaque 300 MG/ML 10 ML BTL IJ (14:06)
[2021-09-10] MEDS: methylPREDNISolone ACETATE 80 MG/ML VIAL IM (14:07)
[2021-09-10] MEDS: Bupivacaine 0.5% Pres-Free 30 ML VIAL 5 ML IJ (14:12)
--- NOTE | 2021-09-10 14:14 | W.PROCNOTE ---
Date of service: 09/10/21 Time of Service: 14:14 Procedure Note Date of procedure: 09/10/21 Procedure: Left Shoulder Injection Surgeon/Proceduralist/Physician: Reynaldo Calix Procedure Indications: Abdulkadir has had persistent pain of the LEFT shoulder. Noninvasive measures have been tried. To serve as both diagnostic and therapeutic, an injection under fluoroscopy was recommended. I had discussed the risks of the procedure and the patient elected to proceed. Procedure Description: Abdulkadir was greeted in the flouroscopy room. The correct side was identified and the consent was reviewed with the patient and signed. The patient was then placed in the supine position on the fluoroscopy table. The LEFT shoulder was then prepped with Chloraprep. The anterior injection starting point was identiifed by bony landmarks and fluoroscopy. The skin and soft tissue in the tract of the injection was anesthetized with 1% Lidocaine. A spinal needle was then inserted deep into the shoulder joint at the level of the recess between the glenoid and superior humeral head. A small amount of Omnipaque solution was injected to confirm intraarticular placement. Once confirmed, the shoulder was injected with 5cc of 0.5% Bupivicaine and 80mg of Depo-Medrol. A bandaid was placed on the injection site. The patient tolerated the procedure well and noted improvement in pre-injection pain.
== END ==
PROVIDERS: PCP Family Medicine; Visit Provider Student in an Organized Health Care Education/Training Program
DX: M19.012 Primary osteoarthritis, left shoulder (principal); M75.22 Bicipital tendinitis, left shoulder; M75.52 Bursitis of left shoulder
CPT/HCPCS: 20610; 77002; J1040

== ENCOUNTER 2021-09-21 02:26 | Outpatient (CLI) | payer BC, MEDICARE, SELFPAY ==
[2021-09-21 14:32] LABS: Source Nasal/Nares
[2021-09-21 16:43] LABS: COVID-19 PCR Negative (Negative)
== END 2021-09-21 02:27 | disposition home or self-care (01) ==
PROVIDERS: PCP Family Medicine; Visit Provider Student in an Organized Health Care Education/Training Program
DX: Z20.822 Contact with and (suspected) exposure to COVID-19 (principal); Z01.818 Encounter for other preprocedural examination
CPT/HCPCS: 87635

== ENCOUNTER 2021-09-22 09:23 | Day surgery (SDC) | payer BC, MEDICARE, SELFPAY ==
[2021-09-22] VITALS (9 sets, daily range): BP systolic 102–138; BP diastolic 48–88; PULSE 60–69; RESP 12–19; TEMP 36.1–36.7; O2SAT 92–98; BMI 27.8
--- NOTE | 2021-09-22 07:26 | PDOC.DSDIS_ITS ---
Discharge Plan Disposition Patient Disposition: HOME Condition: Good Discharge Details Reason For Visit: Left carpal and cubital tunnel syndromes Attending Provider: Reynaldo Calix Primary Care Provider: Marybel Eldridge Home Meds and New Rx's Prescriptions: New acetaminophen 500 mg tablet 500 mg PO Q6H PRN (Reason: pain) Qty: 60 2RF hydrocodone-acetaminophen 5-325 mg tablet 1 tab PO Q6H PRN (Reason: severe pain) Qty: 6 0RF Rx Instructions: Take one tablet up to every 6 hours as needed for severe postoperative pain ibuprofen 600 mg tablet 600 mg PO TID PRN (Reason: pain) Qty: 60 0RF Continued levothyroxine [Synthroid] 125 mcg tablet 125 mcg PO DAILY gabapentin 100 mg capsule 100 mg PO DAILY amlodipine 10 mg tablet 10 mg PO DAILY Label Comments: TAKE ONE TABLET BY MOUTH EVERY DAY Discontinued acetaminophen 500 mg tablet 500 mg PO Q6H PRN (Reason: pain) Qty: 60 2RF ibuprofen 600 mg tablet 600 mg PO TID PRN (Reason: pain) Qty: 60 0RF Discharge Instructions Additional Instructions: Cubital Tunnel Decompression Discharge Instructions Activity: You should stay in the sling for the first 2 weeks. You may come out of the sling for gentle motion and hygiene but should largely remain in the sling to allow the incision site to heal. Gentle motion of the elbow, hand, wrist, and fingers is okay and encouraged after the first few days, but no repetitive activites nor heavy lifting. You may apply ice. Medications: - You should take Tylenol and Ibuprofen around the clock. - You have been prescribed Hydrocodone for breakthrough pain. Dressings: - The initial surgical dressing should stay in place for 3 days. It may then be removed and kept clean and dry. You should cover with a light gauze dressing. - You may shower after 3 days and get the wound wet. Follow-up: 10 days Stand Alone Forms: Yogi Juares Tunnel Release Referrals: Reynaldo Calix MD [ [facility] STAFF PHYSICIAN] - Equipment/Supplies: Sling Activity:: Elevate Remove Dressings/Wound Care:: 72 hours Shower/Bathe:: 72 hours Diet:: As Tolerated Discharge Orders Discharge Orders: Discharge Order (Routine); Ordered 09/22/21 Ordered By: Mone Celis
--- NOTE | 2021-09-22 08:23 | W.ANESPRE ---
General Info Date of Service Date Performed: 09/22/21 Height: 5 ft 11 in Weight: 90.718 kg Body Mass Index (BMI): 27.8 Surgical Procedure: Operation Date: 09/22/21 10:40 Proposed Procedure Side Surgeon p Wrist ECTR Left Reynaldo Calix MD s Cubital Tunnel Release Left Reynaldo Calix MD Meds Allergies and Home Medications Allergies Allergy/AdvReac Type Severity Reaction Status Date / Time Sulfa (Sulfonamide Allergy Intermediate Skin Rash Verified 09/22/21 09:41 Antibiotics) codeine AdvReac Nausea/hangover Verified 09/22/21 09:41 feeling Home Medication Medication Instructions Recorded levothyroxine 125 mcg tablet 125 mcg PO DAILY 12/18/19 (Synthroid) gabapentin 100 mg capsule 100 mg PO DAILY 12/17/20 amlodipine 10 mg tablet 10 mg PO DAILY 06/05/21 acetaminophen 500 mg tablet 500 mg PO Q6H PRN pain #60 tabs 09/22/21 hydrocodone 5 mg-acetaminophen 325 1 tab PO Q6H PRN severe pain #6 09/22/21 mg tablet tabs ibuprofen 600 mg tablet 600 mg PO TID PRN pain #60 tabs 09/22/21 Current Visit Medications: Current Medications Generic Name Dose Route Start Last Admin Trade Name Freq PRN Reason Stop Dose Admin Acetaminophen 650 mg 09/22/21 07:25 Acetaminophen 325 Mg Tab PO Q4H PRN PRN Hydrocodone Bitart/Acetaminophen 0 tab 09/22/21 07:25 Hydrocodone 5/Acetaminophen 325 Tab PO Q3H PRN PRN Pain Ringer's Solution 1,000 mls @ 80 mls/hr 09/22/21 06:00 IV 10/21/21 23:59 INFUSION KWAME Cefazolin Sodium/Dextrose 2 gm in 50 mls @ 100 mls/hr 09/22/21 06:00 Ancef Duplex IVPB 09/22/21 16:00 PREOP KWAME IV Miscellaneous Supplies 1 each 09/22/21 06:00 Iv Access IV 10/21/21 23:59 DIRECTED KWAME Sodium Chloride 0 ml 09/22/21 06:00 Normal Saline Flush 10 Ml Syr IV 10/21/21 23:59 PRN PRN Sodium Chloride 0 ml 09/22/21 06:00 Normal Saline 10 Ml Vial IJ 08/31/22 23:59 DIRECTED PRN Sterile Water 0 ml 09/22/21 06:00 Water,Injection,Sterile 10 Ml Vial IJ 10/21/21 23:59 DIRECTED PRN PFSH Active Problems Active Problems: Problem Status Onset Code Bursitis of left shoulder M75.52 Bursitis of right shoulder M75.51 Biceps tendinitis of left shoulder M75.22 Biceps tendinitis of right shoulder M75.21 Arthritis of right glenohumeral joint M19.011 Arthritis of left glenohumeral joint M19.012 Postoperative seroma of musculoskeletal structure after musculoskeletal procedure M96.842 Seroma, postoperative Carpal tunnel syndrome on both sides G56.03 Cubital tunnel syndrome, bilateral G56.23 Lumbar stenosis M48.061 Peripheral neuropathy G62.9 Medical History Medical History Alcohol abuse BPH (benign prostatic hyperplasia) [place] [facility] [place] aden[place] (erectile dysfunction) Hepatitis C History of head and neck cancer History of radiation therapy History of substance abuse HTN (hypertension) Hypothyroidism Lumbar IVD with compression radiculopathy Osteoarthritis Medical History Comments:: Dentures removed and left at home Surgical History Surgical History back surgery Colonoscopy - IV Sedation 2005-[facility] Status post total hip replacement, left Tobacco Smoking/Tobacco Use Status: Former Tobacco Use Alcohol Alcohol Intake: current Alcohol intake frequency: 3 or more drinks per day Alcohol type: beer Substance Use Substance use: Daily Substance use type: marijuana and prescription drug Vital Signs and Lab Results Lab Results Blood Type / Crossmatch: No Data to Display Complete Blood Count: No Data to Display Complete Metabolic Panel: No Data to Display Liver Function Panel: No Data to Display Coagulation Panel: No Data to Display Cardiac Panel: No Data to Display Arterial Blood Gas: No Data to Display Venous Blood Gas: No Data to Display Pancreas Panel: No Data to Display Thyroid Panel: No Data to Display Infectious Disease: Coronavirus (COVID-19)(PCR) Negative (Negative) 09/21/21 08:34 Coronavirus 2019 Source Nasal/Nares 09/21/21 08:34 Blood Cultures: No Data to Display Toxicology Panel: No Data to Display Anesthesia Assessment and Plan Anesthesia History Personal History: No History of Anesthesia Complications Family History: No Family History of Anesthesia Complications Exercise Tolerance Exercise Tolerance: Metabolic Equivalents>4 Pertinent Negatives Pertinent Negatives: No Symptoms of GERD Cardiac & Pulmonary Exam Cardiac Exam: Normal S1/S2 Heart Sounds Pulmonary Exam: Clear Bilateral Breath Sounds Implantable Cardiac Device Does patient have a Pacemaker or an ICD?: No Airway Exam Known Difficult Airway: No Mallampati Class: 2 Mouth Opening: Normal (> 3cm) Thyromental Distance: Greater than 3 cm Neck Range of Motion: Full ROM Neck Circumference: Normal Teeth Condition: Normal Dentition and Removable Dentures/Plates Upper (Partial left at home) ASA Classification ASA Score: ASA 2 Emergency Case?: No NPO Status NPO Status: NPO Clears >2 hours, Solids >8 hours Anesthesia Plan Resuscitation Status: Full Code Anesthesia Technique: General Anesthesia Airway Planned: Endotracheal Tube Monitors Used: Standard Monitors
--- NOTE | 2021-09-22 09:24 | W.PREOPHP ---
Assessment and Plan Assessment and plan (1) Carpal tunnel syndrome on both sides: Status: Acute (2) Cubital tunnel syndrome, bilateral: Status: Acute Assessment and plan: Plan: He was screened by the nursing staff to have no symptoms or red flags for possible Covid-19 infection. Educated patient on surgery covering surgical technique, recovery process, benefits and risks including but not limited to risk of infection, blood clot, damage to soft tissue/blood vessels/nerves in detail. After discussion patient gives verbal understanding of risks and elects to proceed with scheduling surgery. Patient had opportunity to have questions answered to their satisfaction. They will contact office if issues arise. Patient will continue to be scheduled for left ECTR and cubital tunnel release and associated procedures with Dr. Calix. History of Present Illness Narrative: Mr. Mahmood is a 71-year-old male who presents to hospital for left carpal and cubital tunnel releases. Reports no change in his numbness and tingling in his left arm since his last orthopedic appointment for this issue. Continues to have symptoms on a daily basis that interfere with desired activity for over a year. He is status post right ECTR and cubital tunnel release that has done well. Due to his continued symptoms in the left upper extremity he wishes to proceed with surgical intervention. Pertinent Surgical Information Denies past medical history of: cardiac issues, angina, asthma, COPD Denies prior complications from surgery or anesthesia. Review of Systems Cardiovascular Cardiovascular: Denies chest pain, Denies rapid heart rate, Denies irregular heart rhythm, Denies dyspnea, Denies dyspnea on exertion and Denies slow heart rate Respiratory Respiratory: Denies cough, Denies dyspnea and Denies dyspnea on exertion PFSH All Active Problems Bursitis of left shoulder (Acute) Bursitis of right shoulder (Acute) Biceps tendinitis of left shoulder (Acute) Biceps tendinitis of right shoulder (Acute) Arthritis of right glenohumeral joint (Acute) Arthritis of left glenohumeral joint (Acute) Postoperative seroma of musculoskeletal structure after musculoskeletal procedure (Acute) Seroma, postoperative (Acute) Carpal tunnel syndrome on both sides (Acute) S/P R ECTR: 06/09/2021 Cubital tunnel syndrome, bilateral (Acute) S/P Release R: 06/10/2021 Lumbar stenosis (Acute) Peripheral neuropathy (Acute) Medical History Alcohol abuse BPH (benign prostatic hyperplasia) Bundle branch block [place] [facility] [place] Colon adenoma ED (erectile dysfunction) Hepatitis C History of head and neck cancer History of radiation therapy History of substance abuse HTN (hypertension) Hypothyroidism Lumbar IVD with compression radiculopathy Osteoarthritis Surgical History back surgery Colonoscopy - IV Sedation 2006-[facility] Status post total hip replacement, left Social History Smoking/Tobacco Use Status: Former Tobacco Use Quit Date: 02/22/04 Smoking risk assessment performed?: Yes Alcohol Intake: current Alcohol Intake frequency: 3 or more drinks per day Alcohol type: beer Drug use: Daily Substance use type: marijuana and prescription drug Household members: spouse Number of Children: 2 current occupation: Disabled Current gender identity: male Do you feel safe at home: Yes Do you feel safe in your relationship?: Yes Meds Allergies and Home Medications Allergies Allergy/AdvReac Type Severity Reaction Status Date / Time Sulfa (Sulfonamide Allergy Intermediate Skin Rash Verified 09/21/21 11:59 Antibiotics) codeine AdvReac Nausea/hangover Verified 09/21/21 11:59 feeling Home Medications Medication Instructions Recorded Confirmed Type levothyroxine 125 mcg tablet 125 mcg PO DAILY 12/18/19 09/21/21 History (Synthroid) gabapentin 100 mg capsule 100 mg PO DAILY 12/17/20 09/21/21 History amlodipine 10 mg tablet 10 mg PO DAILY 06/05/21 09/21/21 History acetaminophen 500 mg tablet 500 mg PO Q6H PRN pain #60 tabs 09/22/21 Rx hydrocodone 5 mg-acetaminophen 325 1 tab PO Q6H PRN severe pain #6 09/22/21 Rx mg tablet tabs ibuprofen 600 mg tablet 600 mg PO TID PRN pain #60 tabs 09/22/21 Rx Exam Const General: cooperative and no acute distress Resp Effort & Inspection: normal respiratory effort and able to speak in complete sentences Auscultation: clear to auscultation bilaterally, no rales, no rhonchi and no wheezes Cardio Heart Sounds: S1 normal, S2 normal, no murmurs and no rubs
[2021-09-22] MEDS: Lactated Ringers 1,000 ML 80 ML IV (09:49)
[2021-09-22] MEDS: ceFAZolin 2 GM/50 ML BAG IVPB (10:39)
[2021-09-22] MEDS: Lidocaine 1% Multi-Dose W/EPI 1/100,000 50 ML VIAL (11:13)
--- NOTE | 2021-09-22 13:08 | W.ANESPOSTOP ---
Postoperative Evaluation Date, Time and Location Date Performed: 09/22/21 Time Performed: 13:08 Patient Location: Day Surgery Unit Vital Signs Most Recent Imported Vital Signs: Most Recent Vital Signs Temp Pulse Resp BP Pulse Ox 36.1 C L 63 18 129/80 97 09/22/21 12:25 09/22/21 12:25 09/22/21 12:25 09/22/21 12:25 09/22/21 12:25 Pain Score Most Recent Pain Score: Most Recent Pain Score Pain Level 0 09/22/21 12:25 Assessment Mental Status: Awake (Alert & Oriented to Patient Baseline) Airway and Respiratory Function: Patent airway with normal (patient baseline) respiratory exam Cardiovascular Function: Hemodynamically Stable Hydration Status: Adequately Hydrated Nausea & Vomiting: No Nausea or Vomiting Pain: Pt. Denies Any Pain Peripheral Nerve Block: Patient did not receive a nerve block
--- NOTE | 2021-09-22 13:29 | W.ANESPOSTOP ---
Postoperative Evaluation Date, Time and Location Date Performed: 09/22/21 Time Performed: 13:29 Patient Location: Day Surgery Unit Vital Signs Most Recent Imported Vital Signs: Most Recent Vital Signs Temp Pulse Resp BP Pulse Ox 36.1 C L 63 18 129/80 97 09/22/21 12:25 09/22/21 12:25 09/22/21 12:25 09/22/21 12:25 09/22/21 12:25 Most Recent Vital Signs Temp Pulse Resp BP Pulse Ox 36.1 C L 63 18 129/80 97 09/22/21 12:25 09/22/21 12:25 09/22/21 12:25 09/22/21 12:25 09/22/21 12:25 Pain Score Most Recent Pain Score: Most Recent Pain Score Pain Level 0 09/22/21 12:25 Assessment Mental Status: Awake (Alert & Oriented to Patient Baseline) Airway and Respiratory Function: Patent airway with normal (patient baseline) respiratory exam Cardiovascular Function: Hemodynamically Stable Hydration Status: Adequately Hydrated Nausea & Vomiting: No Nausea or Vomiting Pain: Pt. Denies Any Pain Peripheral Nerve Block: Patient did not receive a nerve block
--- NOTE | 2021-09-22 15:34 | ROE_ITS ---
Date of service: 09/22/21 Time of Service: 11:00 Operative Note Operative Note DATE OF PROCEDURE: 09/22/21 PRE-OP DIAGNOSIS: Left Carpal Tunnel and Left Cubital Tunnel Syndrome POST-OP DIAGNOSIS: same PROCEDURE: Left Endoscopic Carpal Tunnel Release and Left Cubital Tunnel Decompression with Anterior Subcutaneous Transposition SURGEON: Reynaldo Calix AEROSPACE PROJECT ENGINEER: Mone Celis Refer to Anesthesia Record ESTIMATED BLOOD LOSS: 0 PATHOLOGY: none sent TOURNIQUET TIME: 26 COMPLICATIONS: None Patient was transported to: PACU Patient's condition: stable Indications: Abdulkadir is a 71-year-old male who has had symptoms of carpal and cubital tunnel syndrome. Nonoperative treatment options had been trialed. Nerve conduction studies identified the carpal and cubital tunnel as the point of compression. Given failure of nonoperative treatments and persistent symptoms, I offered operative intervention. I reviewed the technical details of a carpal tunnel release and cubital tunnel decompression with possible anterior subcutaneous transposition. I reviewed the risk of the procedure to include bleeding, infection, pain, stiffness, nerve instability, damage to superficial nerves, persistent symptoms, and incomplete release. Despite these risks, the patient elected to proceed. Findings: The carpal tunnel was release with a standard endoscopic technique without difficulty and excellent visualization. There was a tightened cubital tunnel. [OTHER] The ulnar nerve was release from the first motor branch distally through the [place] proximally. Procedure Description: Abdulkadir was greeted in the preoperative holding area where the correct side was identified and marked. The consent was reviewed with the patient and signed. The history and physical was updated. All questions were answered. He was taken back to the operating room. The patient was placed into the supine position on the operating room table with the left arm on an arm board. A nonsterile tourniquet was placed high onto the arm, into the axilla. All bony prominences were well padded. Prophylactic antibiotics in the form of Cefazolin were administered. The left arm was then prepped with Chloraprep and draped in a standard fashion with stockinette and extremity drape. A timeout to confirm correct identity, side and site, procedure, allergies, anesthesia, and medical concerns was performed. The surgical site was marked in the volar wrist creases in line with the radial border of the fourth ray. This area was anesthetized with approximately 6cc of 1% Lidocaine with Epinephrine. The surgical site about the medial elbow was drawn on the skin just posterior to the medial epicondyle borders. The planned surgical field was anesthetized with 1% Lidocaine with Epinephrine. The limb was then exsanguinated with an Esmarch. Starting with the carpal tunnel, the skin was incised with a 15 blade, approximately 1cm. The skin only was cut and the deeper tissue was dissected bluntly with a tenotomy scissor, avoiding passing nerve and venous structures. The fascia was penetrated and opened bluntly. A two-prong skin hook was placed under this proximal fascial edge. A series of hamate finders were used to identify and dilate the carpal tunnel. Synovial elevator was used to free synovial attachments to the underside of the transverse carpal ligament. My thumb was kept in the palm to padmini the distal extent of the carpal tunnel and correctly position the hand. The Microaire endoscope was inserted without difficulty and without resistance. Excellent visualization showed horizontally running fibers of the transverse carpal ligament (TCL). The distal extent of the TCL was visualized and the end of the scope palpated with the thumb. The blade was elevated and withdrawn from distal to proximal. The TCL was split into two flaps. The endoscope was reinserted to confirm complete release and any remnant ligament was incised. The scope was withdrawn and the proximal aspect of the carpal tunnel was grossly inspected and appeared release with the median nerve visible. The antebrachial fascia at the level of the wrist was then freed from the overlying skin and then the underlying median nerve with blunt dissection. This was transected longitudinally for about 3cm proximal to the wrist incision. The wound was then irrigated with easy flow of irrigant distally and proximally. The incision was closed with a single 4-0 Nylon suture. . Attention was then turned to the cubital tunnel release. The skin of the medial elbow was incised only with the elbow in some flexion and on a bump. The deep tissue and subcutaneous fat was dissected with a tenotomy scissors trying to protect any branches of the medial antebrachial cutaneous nerve. Any branches that were identified were retracted out of the way. The ulnar nerve was palpated and identified. It was freely mobile from underneath the medial condyle to position medial to the medial epicondyle. A small window into the cubital tunnel, sheath overlying the nerve, was created and the nerve was able to be palpated with the Burnham. A Metzenbaum scissor was then used to open up the sheath starting with Handy's ligament. I then worked distal over the ulnar nerve releasing any constraints against the nerve all the way to the fascia of the FCU muscle belly. There was notable adhesions area which were released slowly. Knowing that the nerve is unstable I also freed up any deeper adhesions for mobility of the nerve. This muscle belly was bluntly all the way down to the first motor branch of the ulnar nerve and the overlying fascia was incised. Likewise starting there at the medial epicondyle, I proceeded to work proximally to release any constraints over the ulnar nerve. This was taken all the way to the arcade of [place]. The medial intermuscular septum was also palpated and any sharp edges against the ulnar nerve were resected and released. After fully releasing the nerve it was inspected visually. I was also able to palpate the nerve fully and reach one finger up into the proximal and distal aspects to make sure there were no constraints against the nerve. A freer elevator was also used to slide easily against the ulnar nerve without any points of constriction. The arm was then taken through range of motion. The ulnar nerve did sublux/dislocate out of its groove behind the lateral epicondyle. The nerve was freely mobile at this point and was able to rest easily over the anterior surface of the medial condyle. I then raised a flap of fascial tissue based over the medial aspect of the medial epicondyle. This was elevated and secured to the overlying dermis with a #2-0 Vicryl. This created a sling for the nerve. The tissues were relaxed and the nerve set over the anterior aspect of the elbow. A Burnham was able to be moved up and down the nerve without any restriction. The tourniquet was then deflated. Any areas of bleeding were cauterized with bipolar electrocautery. The wound was thoroughly irrigated. The deep tissue was closed with a 3-0 Vicryl. The skin was closed with a 4-0 nylon. The wounds were dressed with Xeroform, 4 x 4's, ABD, Kerlix and an Carlos wrap. Abdulkadir was placed into a sling. Abdulkadir was transferred back to the PACU in a stable condition.
== END 2021-09-22 13:28 | disposition home or self-care (01) ==
PROVIDERS: PCP Family Medicine; Visit Provider Student in an Organized Health Care Education/Training Program
PROC: 01N54ZZ Release Median Nerve, Percutaneous Endoscopic Approach (ICD-10-PCS; CPT 29848; principal; 2021-09-22 10:30)
PROC: (CPT 64718; 2021-09-22 10:30)
DX: G56.02 Carpal tunnel syndrome, left upper limb (principal); G56.22 Lesion of ulnar nerve, left upper limb; I45.2 Bifascicular block; N40.0 Benign prostatic hyperplasia without lower urinary tract symptoms; I10 Essential (primary) hypertension; E03.9 Hypothyroidism, unspecified; F10.10 Alcohol abuse, uncomplicated
CPT/HCPCS: 64718; 29848; J0690; J1100; J1885; J2250; J2405; J2704; L3650

== ENCOUNTER 2021-12-29 14:18 | Outpatient (CLI) | payer BC, MEDICARE, SELFPAY ==
[2021-12-29 15:38] LABS: CREATININE 0.9 mg/dL (0.70-1.30); Estimated GFR 92.45 (mL/min/1.73m2)
== END 2021-12-29 14:19 | disposition home or self-care (01) ==
PROVIDERS: PCP Family Medicine; Visit Provider Physician Assistant
DX: C02.9 Malignant neoplasm of tongue, unspecified (principal)
CPT/HCPCS: 36415; 82565

== ENCOUNTER 2022-03-29 13:45 | Outpatient (REF) | payer BC, MEDICARE, SELFPAY ==
[2022-03-29 14:51] LABS: ALT 63 U/L (16-63); AST 56 U/L (15-37); Albumin 4.1 g/dL (3.4-5.0); Alkaline Phosphatase 123 U/L (46-116); Anion Gap 4.4 mmol/L (3-11); BUN 9 mg/dL (7-18); Bilirubin, Total 0.8 mg/dL (0.2-1.0); CO2 29.6 mmol/L (21.0-32.0); CREATININE 0.8 mg/dL (0.70-1.30); Calcium 9.5 mg/dL (8.5-10.1); Chloride 92 mmol/L (98-107); GGT 165 U/L (15-85); Glucose 97 mg/dL (74-106); Sodium 126 mmol/L (136-145); Total Protein 7.7 g/dL (6.4-8.2)
[2022-03-30 10:59] LABS: Hepatitis C Ab w Rflx HCV PCR Reactive (Negative)
[2022-03-31 13:35] LABS: HCV RNA Qualitative Detected (Undetected)
== END 2022-03-29 13:46 | disposition home or self-care (01) ==
LOC: NCHCN 13:45
PROVIDERS: PCP Family Medicine; Visit Provider Family Medicine
DX: I10 Essential (primary) hypertension (principal); B19.20 Unspecified viral hepatitis C without hepatic coma; Z86.59 Personal history of other mental and behavioral disorders
CPT/HCPCS: 80053; 86803; 87522; 82977

== ENCOUNTER 2022-07-05 19:04 | Outpatient (REF) | payer MEDICARE, SELFPAY ==
[2022-07-05 15:37] LABS: Abs Immature Grans 0.01 10^3/uL (0.0-0.06); Absolute Basophil Count 0.05 10^3/uL (0.0-0.2); Absolute Eosinophil Count 0.18 10^3/uL (0.0-0.7); Absolute Lymphocyte Count 1.26 10^3/uL (1.2-3.4); Absolute Monocyte Count 0.74 10^3/uL (0.1-0.8); Absolute Neutrophil Count 3.15 10^3/uL (1.2-6.7); Basophils % 0.9; Eosinophils % 3.3; HCT 39.1 % (40.0-50.0); HGB 13.6 g/dL (13.5-17.5); Immature Grans % 0.2; Lymphocytes % 23.4; MCH 31.9 pg (27.0-33.0); MCHC 34.8 % (32.0-36.0); MCV 92 fL (80-95); MPV 10.6 fL (8.0-11.0); Monocytes % 13.7; Neutrophils % 58.5; Platelet Count 320 10^3/uL (130-400); RBC 4.27 10^6/uL (4.36-5.78); RDW 12.2 % (11.8-14.1); WBC 5.39 10^3/uL (4.4-10.8)
[2022-07-05 16:05] LABS: ALT 45 U/L (16-63); AST 32 U/L (15-37); Alkaline Phosphatase 111 U/L (46-116); Anion Gap 11.5 mmol/L (3-11); BUN 16 mg/dL (7-18); Bilirubin, Total 1.3 mg/dL (0.2-1.0); CO2 25.5 mmol/L (21.0-32.0); CREATININE 0.8 mg/dL (0.70-1.30); Calcium 9.7 mg/dL (8.5-10.1); Chloride 101 mmol/L (98-107); Estimated GFR 95.21 (mL/min/1.73m2); Glucose 120 mg/dL (74-106); Potassium 4.2 mmol/L (3.5-5.1); Sodium 138 mmol/L (136-145); Total Protein 7.6 g/dL (6.4-8.2)
== END 2022-07-05 19:05 | disposition home or self-care (01) ==
LOC: NCHCN 19:04
PROVIDERS: PCP Family Medicine; Visit Provider Family Medicine
DX: I10 Essential (primary) hypertension (principal); Z01.818 Encounter for other preprocedural examination; Z01.812 Encounter for preprocedural laboratory examination
CPT/HCPCS: 80053; 84443; 85025

== ENCOUNTER 2022-10-26 16:47 | Outpatient (REF) | payer MEDICARE, SELFPAY ==
[2022-10-26 18:18] LABS: ALT 29 U/L (16-63); AST 27 U/L (15-37); Albumin 4.4 g/dL (3.4-5.0); Alkaline Phosphatase 95 U/L (46-116); Anion Gap 7.4 mmol/L (3-11); BUN 12 mg/dL (7-18); Bilirubin, Total 0.8 mg/dL (0.2-1.0); CO2 29.6 mmol/L (21.0-32.0); CREATININE 0.8 mg/dL (0.70-1.30); Calcium 9.9 mg/dL (8.5-10.1); Calculated LDL 93 mg/dL (<100); Chloride 97 mmol/L (98-107); Cholesterol 174 mg/dL (<200); Estimated GFR 95.21 (mL/min/1.73m2); Glucose 99 mg/dL (74-106); HDL Cholesterol 73 mg/dL (40-60); Potassium 5.3 mmol/L (3.5-5.1); Sodium 134 mmol/L (136-145); Total Protein 7.9 g/dL (6.4-8.2); Triglyceride 41 mg/dL (<150)
[2022-10-26 22:38] LABS: PSA, Screening 2.7 ng/mL (<=6.5)
== END 2022-10-26 16:48 | disposition home or self-care (01) ==
LOC: NCHCN 16:47
PROVIDERS: PCP Family Medicine; Visit Provider Family Medicine
DX: I10 Essential (primary) hypertension (principal); F10.10 Alcohol abuse, uncomplicated; N40.0 Benign prostatic hyperplasia without lower urinary tract symptoms; Z12.5 Encounter for screening for malignant neoplasm of prostate
CPT/HCPCS: 80053; 80061; 84153

== ENCOUNTER → 2022-11-08 03:08 | Outpatient (CLI) | payer MEDICARE, SELFPAY ==
--- NOTE | 2022-11-08 | DI.CTLCSR_ITS ---
Exam(s) CT CHEST LUNG CANCER SCREEN EXAM: CT CHEST LUNG CANCER SCREEN CLINICAL HISTORY: FORMER SMOKER Z87.891 SCREENING LUNG CANCER TECHNIQUE: Imaging Protocol: Axial computed tomography images with coronal and sagittal reformatted images were created and reviewed. Low dose screening protocol. COMPARISON: CT CT CHEST LUNG CANCER SCREEN from 12/10/2020 FINDINGS: Tracheobronchial tree: No bronchiectasis or mucus plugging.. Mediastinum and Jen: No dominant adenopathy or fluid collection. Pulmonary parenchyma: No consolidation or dominant measurable mass. Minimal emphysematous changes. Lung Nodules: None. Pleura: No effusion. No pneumothorax. Heart: The heart is not dilated. Minimal coronary artery calcifications are seen. Mitral annular c alcification. Aorta: Thoracic aorta non-dilated. Upper abdomen: Unremarkable. Bones: Severe wedge deformity again noted T10. Degenerative changes greatest in the lower thoracic s pine. Hardware in the lumbar spine partially included. Soft Tissues: Unremarkable. IMPRESSION: No suspicious pulmonary nodules. Lung RADS Cat 1 - Negative: No nodules and definitely benign nodules Lung-RADS 1.0 CATEGORIES: Category 0 - Prior chest CT exam(s) being located for comparison. Category 1 - Annual screening in 12 months. No nodules or definitely benign nodules. Category 2 - Annual screening in 12 months. Benign appearance. Nodules with low likelihood of becomin g active cancer. Category 3 - 6-month follow-up. Probably benign. Short-term follow-up suggested. Nodules with low lik elihood of becoming active cancer. Category 4A - 3-month follow-up and CT/PET if >8 mm in size. Suspicious finding. Findings which requi re additional testing. Category 4B - Findings which require additional testing and tissue sampling. Category 4X - Category 3 or 4 nodules with additional features or imaging findings that increases the suspicion of malignancy. Modifier S- Potentially clinically significant findings (non lung cancer) RADIATION DOSE DELIVERED: 80.12mGy.cm Total DLP DATA REPOSITORY: All CT scans at this facility are submitted to the National Radiology Data Registry (NRDR) Dose Index Registry (DIR) with the [employer] ([employer]). RADIATION OPTIMIZATION: All CT scans at this facility use at least one of these dose optimization te chniques: automated exposure control; mA and/or kV adjustment per patient size (includes targeted exa ms where dose is matched to clinical indication); or iterative reconstruction.
== END ==
PROVIDERS: PCP Family Medicine; Visit Provider Internal Medicine Hematology & Oncology
DX: Z87.891 Personal history of nicotine dependence (principal); Z12.2 Encounter for screening for malignant neoplasm of respiratory organs
CPT/HCPCS: 71271

== ENCOUNTER 2023-10-27 03:41 | Outpatient (CLI) | payer MEDICARE, SELFPAY ==
[2023-10-27 15:36] LABS: CREATININE 0.8 mg/dL (0.70-1.30); Estimated GFR 94.62 (mL/min/1.73m2)
== END 2023-10-27 03:42 | disposition home or self-care (01) ==
PROVIDERS: PCP Family Medicine; Referring Provider Otolaryngology; Visit Provider Otolaryngology
DX: C02.8 Malignant neoplasm of overlapping sites of tongue (principal)
CPT/HCPCS: 36415; 82565

== ENCOUNTER 2024-01-18 11:19 | Outpatient (CLI) | payer MEDICARE, SELFPAY ==
[2024-01-18 08:44] LABS: CREATININE 0.9 mg/dL (0.70-1.30); Estimated GFR 91.31 (mL/min/1.73m2)
== END 2024-01-18 11:20 | disposition home or self-care (01) ==
LOC: LBO 11:22
PROVIDERS: PCP Family Medicine; Visit Provider Otolaryngology
DX: C02.9 Malignant neoplasm of tongue, unspecified (principal)
CPT/HCPCS: 36415; 82565

== ENCOUNTER 2024-01-27 15:25 | Outpatient (REF) | payer MEDICARE, SELFPAY ==
[2024-01-27 16:11] LABS: Abs Immature Grans 0.02 10^3/uL (0.0-0.06); Absolute Basophil Count 0.04 10^3/uL (0.0-0.2); Absolute Eosinophil Count 0.19 10^3/uL (0.0-0.7); Absolute Lymphocyte Count 0.81 10^3/uL (1.2-3.4); Absolute Monocyte Count 0.65 10^3/uL (0.1-0.8); Absolute Neutrophil Count 3.54 10^3/uL (1.2-6.7); Basophils % 0.8 %; Eosinophils % 3.6 %; HGB 14.3 g/dL (13.5-17.5); Immature Grans % 0.4 %; Lymphocytes % 15.4 %; MCH 33.2 pg (27.0-33.0); MCHC 34.9 % (32.0-36.0); MCV 95 fL (80-95); MPV 10.5 fL (8.0-11.0); Monocytes % 12.4 %; Neutrophils % 67.4 %; Platelet Count 252 10^3/uL (130-400); RBC 4.31 10^6/uL (4.36-5.78); RDW 10.8 % (11.8-14.1); RDW-SD 38.5 fL; WBC 5.25 10^3/uL (4.4-10.8)
[2024-01-27 17:00] LABS: ALT 28 U/L (16-63); AST 26 U/L (15-37); Alkaline Phosphatase 81 U/L (46-116); Anion Gap 10.5 mmol/L (3-11); BUN 12 mg/dL (7-18); Bilirubin, Total 0.55 mg/dL (0.2-1.0); CO2 25.5 mmol/L (21.0-32.0); CREATININE 0.8 mg/dL (0.70-1.30); Calcium 9.6 mg/dL (8.5-10.1); Chloride 100 mmol/L (98-107); Estimated GFR 94.62 (mL/min/1.73m2); Glucose 99 mg/dL (74-106); Potassium 4.3 mmol/L (3.5-5.1); Sodium 136 mmol/L (136-145); TSH (W/Ref FT4) 2.71 uIU/mL (0.36-3.74); Total Protein 7.3 g/dL (6.4-8.2)
[2024-01-27 22:29] LABS: PSA, Screening 2.3 ng/mL (<=6.5)
== END 2024-01-27 15:26 | disposition home or self-care (01) ==
LOC: NCHCN 15:25
PROVIDERS: PCP Family Medicine; Visit Provider Family Medicine
DX: E03.9 Hypothyroidism, unspecified (principal); C02.9 Malignant neoplasm of tongue, unspecified
CPT/HCPCS: 80053; 84153; 84443; 85025

== ENCOUNTER 2024-08-09 01:05 | Outpatient (CLI) | payer MEDICARE, SELFPAY ==
[2024-08-09 08:46] LABS: Abs Immature Grans 0.03 10^3/uL (0.0-0.06); Absolute Basophil Count 0.07 10^3/uL (0.0-0.2); Absolute Eosinophil Count 0.13 10^3/uL (0.0-0.7); Absolute Lymphocyte Count 1.02 10^3/uL (1.2-3.4); Absolute Monocyte Count 0.92 10^3/uL (0.1-0.8); Absolute Neutrophil Count 4.79 10^3/uL (1.2-6.7); Eosinophils % 1.9 %; HCT 40.2 % (40.0-50.0); HGB 13.9 g/dL (13.5-17.5); Immature Grans % 0.4 %; Lymphocytes % 14.7 %; MCH 31.6 pg (27.0-33.0); MCHC 34.6 % (32.0-36.0); MCV 91 fL (80-95); MPV 9.6 fL (8.0-11.0); Monocytes % 13.2 %; Neutrophils % 68.8 %; Platelet Count 336 10^3/uL (130-400); RDW-SD 40.7 fL; WBC 6.96 10^3/uL (4.4-10.8)
[2024-08-09 09:25] LABS: ALT 35 U/L (16-63); AST 31 U/L (15-37); Albumin 4.3 g/dL (3.4-5.0); Alkaline Phosphatase 96 U/L (46-116); Bilirubin, Direct 0.1 mg/dL (0.0-0.2); Bilirubin, Total 0.6 mg/dL (0.2-1.0); Total Protein 7.9 g/dL (6.4-8.2)
== END 2024-08-09 01:06 | disposition home or self-care (01) ==
PROVIDERS: PCP Family Medicine; Visit Provider Podiatrist Foot & Ankle Surgery
DX: Z51.81 Encounter for therapeutic drug level monitoring (principal)
CPT/HCPCS: 36415; 80076; 82565; 85025

== ENCOUNTER 2024-09-10 13:48 | Outpatient (CLI) | payer MEDICARE, SELFPAY ==
[2024-09-10 13:47] LABS: Abs Immature Grans 0.02 10^3/uL (0.0-0.06); HCT 37.4 % (40.0-50.0); HGB 13.3 g/dL (13.5-17.5); Immature Grans % 0.3 %; MCH 32.3 pg (27.0-33.0); MCHC 35.6 % (32.0-36.0); MCV 91 fL (80-95); MPV 9.4 fL (8.0-11.0); Platelet Count 309 10^3/uL (130-400); RBC 4.12 10^6/uL (4.36-5.78); RDW 12.3 % (11.8-14.1); RDW-SD 40.8 fL; WBC 6.13 10^3/uL (4.4-10.8)
[2024-09-10 14:33] LABS: ALT 38 U/L (16-63); AST 29 U/L (15-37); Albumin 4.0 g/dL (3.4-5.0); Alkaline Phosphatase 100 U/L (46-116); Bilirubin, Direct 0.1 mg/dL (0.0-0.2); Bilirubin, Total 0.4 mg/dL (0.2-1.0); Total Protein 7.3 g/dL (6.4-8.2)
== END 2024-09-10 13:49 | disposition home or self-care (01) ==
LOC: LBO 13:49
PROVIDERS: PCP Family Medicine; Visit Provider Podiatrist Foot & Ankle Surgery
DX: B35.1 Tinea unguium (principal)
CPT/HCPCS: 36415; 80076; 85025

== ENCOUNTER → 2024-10-15 14:57 | Outpatient (BNVA) | payer MEDICARE, SELFPAY | PROVIDERS: PCP Family Medicine; Referring Provider Family Medicine; Visit Provider Nurse Practitioner Adult Health | DX: G56.23 Lesion of ulnar nerve, bilateral upper limbs (principal); G56.03 Carpal tunnel syndrome, bilateral upper limbs | CPT/HCPCS: 99214; 95912 ==

== ENCOUNTER 2024-11-26 02:17 | Outpatient (CLI) | payer MEDICARE, SELFPAY ==
--- NOTE | 2024-11-26 | DI.CT_ITS ---
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 Computer aided detection (CAD) was utilized. CONTRAST MATERIAL: Intravenous: Omnipaque 350Contrast volume:100 mL. COMPARISON: CT NECK AND CHEST WITH CONTRAST from 06/21/[address] CHEST LUNG CANCER SCREEN from 08/28/[address] CHEST LUNG CANCER SCREEN from 11/08/2022 FINDINGS: There is artifact from the patient's left shoulder replacement. CT CHEST: Tracheobronchial tree: Patent where visualized. No evidence of bronchiectasis. Pulmonary parenchyma: No consolidation or dominant measurable mass. There are no pulmonary nodules. Mediastinum and Jen: There is stable small mediastinal lymph nodes. The esophagus is unremarkable. Thyroid gland: Unremarkable. Pleura: No effusion or pneumothorax. Heart: The heart is not dilated. Single-vessel coronary artery calcification is present. No pericardial effusion. Aorta: The ascending thoracic aorta measures 4 x 4 cm. Atherosclerotic calcification is present. Pulmonary arteries: Due to the timing of the bolus, there is suboptimal opacification of the pulmonary arteries. No large central pulmonary embolism is present. Upper abdomen: Unremarkable. Lymph nodes: No significant axillary adenopathy is present. Bones: Within normal limits for the patient's age. There are marked degenerative changes seen at the right glenohumeral joint characterized by joint space narrowing and osteophytes. The patient has a left shoulder replacement. There is again seen a severe wedge deformity of T10. There is a stable s clerotic focus in the right 5th rib laterally. There has been no change in appearance of the bones compared to the prior examination. Soft tissues: Mild bilateral gynecomastia. CT NECK: Visualized intracranial structures: Within normal limits. Orbits and orbital soft tissues: Within normal limits. Visualized paranasal sinuses: Within normal limits. Pharynx: Within normal limits. Larynx: Within normal limits. Retropharyngeal space: Within normal limits. Parotids/submandibular: The right submandibular gland is no longer visualized. There is stranding in the soft tissues in the right submandibular region which may be postsurgical. No discrete mass is identified in this region. Thyroid gland: Within normal limits. Lymphadenopathy: There is scattered lymph nodes seen along the level one to level three all measuring less than 8 mm in short axis diameter which are physiologic in nature. There is a small submental lymph node the largest measures 0.6 cm in short axis diameter. Trachea: Within normal limits. Bones: Within normal limits for the patient's age. There are degenerative changes seen throughout the cervical spine. There is 5-6 mm anterolisthesis of C7-T1 which has progressed since the prior examination. There is resultant bilateral neural foraminal stenosis, left greater than right. Carotids/Jugular: Atherosclerotic calcification is present, particularly at the proximal right internal carotid artery where there is approximately 50 percent stenosis present. Soft tissues: There is mild thickening of the platysma on the right and also mild skin thickening in the right neck. This may be related to postradiation therapy. IMPRESSION: 1. Stable appearance of the chest compared to the prior examination. 2. 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 There is mild skin thickening in the right neck, mild thickening of the right platysma and subcutaneous stranding in the bed of the right submandibular gland. This may be postsurgical and/or post therapeutic related to radiation therapy. Please klarissa elate clinically. 3. No evidence of a recurrent mass or cervical adenopathy. 4. Progression of the anterolisthesis at C7-T1 resulting in bilateral neural foraminal stenosis, left greater than right. RADIATION DOSE DELIVERED: 678.15mGy.cm Total DLP DATA REPOSITORY: All CT scans at this facility are submitted to the National Radiology Data Registry (NRDR) Dose Index Registry (DIR) with the [employer] (ACR). RADIATION OPTIMIZATION: All CT scans at this facility use at least one of these dose optimization techniques: automated exposure control; mA and/or kV adjustment per patient size (includes targeted exams where dose is matched to clinical indication); or iterative reconstruction.
[2024-11-26 08:35] LABS: Estimated GFR 90.74 (mL/min/1.73m2)
[2024-11-26] MEDS: Normal Saline - Diluent 50 ML VIAL IJ (08:53)
[2024-11-26] MEDS: Omnipaque 350 MG/ML 100 ML BTL IJ (08:53)
== END 2024-11-26 02:37 ==
LOC: DI 02:18
PROVIDERS: PCP Family Medicine; Visit Provider Otolaryngology
DX: C02.9 Malignant neoplasm of tongue, unspecified (principal); M48.02 Spinal stenosis, cervical region; M99.63 Osseous and subluxation stenosis of intervertebral foramina of lumbar region
CPT/HCPCS: 70491; 71260; 82565; J3490

== ENCOUNTER → 2025-02-01 01:10 | Outpatient (CLI) | payer MEDICARE, SELFPAY ==
--- NOTE | 2025-02-01 | DI.MRI_ITS ---
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 COMPARISON: No exams were available for comparison FINDINGS: BONES: Vertebral body heights are maintained. There is degenerative straightening of the normal cervical lordosis. Mild spondylolisthesis at C7-T1. Bone marrow signal intensity is within normal limits. CERVICAL CORD: Craniovertebral junction is unremarkable. Mild thinning it of high signal in the cord at the C4-5 level. SOFT TISSUES: Unremarkable. C2-3: Mild loss of disc height. Small endplate osteophytes and mild concentric disc bulging. Facet degenerative changes. Severe bilateralneural foraminal narrowing. No significant central canal stenosis. C3-4: Obliteration of the disc. Circumferential osteophytes. Facet degenerative changes. Mild central canal stenosis of the AP dimension. Severe bilateral neural foraminal narrowing. C4-5: Bladder a koroma of the disc. Circumferential osteophytes. Facet degenerative changes. Fyxu-wh-xwbcitgf central canal stenosis. Severe bilateral neural foraminal narrowing.. C5-6: Moderate loss of disc height. Small endplate osteophytes. Severe bilateral neural foraminal narrowing. Mild central canal stenosis.. C6-7: Severe loss of disc height, prominent endplate osteophytes, present projecting circumferentially. Facet degenerative changes. Moderate central canal stenosis. Severe bilateral neural foraminal narrowing.. C7-T1: Severe loss of disc height. Circum around Spanish all osteophytes. Prominent facet degenerative changes causing mild spondylolisthesis. Moderate central canal stenosis. Severe bilateral neural foraminal narrowing. IMPRESSION: Severe degenerative disc changes throughout. Facet degenerative changes. Multilevel central canal stenosis. Severe multilevel bilateral neural foraminal narrowing. Mild thinning of the cord and some increased signal at the C4-5 level. DATA REPOSITORY:
== END ==
PROVIDERS: PCP Family Medicine; Visit Provider Family Medicine
DX: G62.9 Polyneuropathy, unspecified (principal)
CPT/HCPCS: 72141